=== PATIENT | male | born 1945 | race Two or more races ===

== ENCOUNTER → 2017-05-02 | Day surgery (SDC) | payer MEDICARE ==
[~2017-05-02] MED LIST: ATORVASTATIN CA20 MG PO; BUPIVACAINE HCL 0.5% INJ 30 ML VIAL INJ ONE; CEFAZOLIN SOD 1 GM VIAL ONE; DEXAMETHASONE SOD PHOS INJ 4 MG/ML VIAL ONE; FENTANYL CITRATE/PF 100MCG/2 ML INJ ONE; FINASTERIDE5 MG PO; GLYCOPYRROLATE INJ 1MG/ 5 ML SYR ONE; JANUMET XR 50-1 EAC1 PO; LEVEMIR100 UNIT/1 INJ; LIDOCAINE HCL 2% LOCAL INJ 5 ML SDV VIAL INJ ONE; LISINOPRIL10 MG PO; MIDAZOLAM HCL 2 MG/2 ML VIAL ONE; NEOSTIGMINE 5 MG/5ML SYR ONE; ONDANSETRON HCL INJ 2 MG/ML VIAL ONE; PROPOFOL IV EMULSION 10 MG/ML 20 ML VIAL ONE; ROCURONIUM BROMIDE 10 MG/ML 5ML VIAL ONE; SEVOFLURANE INHAL SOLN 250 ML PEN BTL ONE; TAMSULOSIN HCL0.4 MG PO
--- NOTE | 2017-05-02 08:35 | Operative Report ---
DATE OF PROCEDURE: May 02, 2017 PREOPERATIVE DIAGNOSES: Chronic cholecystitis, cholelithiasis. POSTOPERATIVE DIAGNOSES: Chronic cholecystitis, cholelithiasis. PROCEDURES 1. Diagnostic laparoscopy. 2. Laparoscopic cholecystectomy. BOWL TOPPER: None. ANESTHESIA: General endotracheal. INDICATIONS AND FINDINGS: Patient is a 72-year-old male who presented with complaints of epigastric abdominal pain. Workup revealed gallstones. At surgery, the patient was found to have gallbladder that was mildly distended. Cystic duct was about 2 mm in diameter, common bile duct was about 5 mm in diameter. Liver, stomach, and lower abdomen all appeared normal. TECHNIQUE: After adequate general endotracheal anesthesia with the patient in supine position, the abdomen was prepped and draped in sterile fashion with [place] solution. Skin in the umbilicus was infiltrated with 0.5% Marcaine. An incision was made at the umbilicus. Abdominal wall was elevated, and Veress needle was introduced. Pneumoperitoneum was then created. A 10-mm trocar and cannula were then passed through the umbilical wound. Laparoscopic camera was introduced. Initial laparoscopy revealed liver, stomach, and lower abdomen all appeared normal. A 10-mm trocar and cannula were placed in the epigastrium and two 5-mm trocars and cannulas placed in right upper quadrant. These were placed under direct vision. Fundus of the gallbladder was grasped and retracted superiorly. Neck of the gallbladder was grasped and retracted laterally. Peritoneum over the neck of the gallbladder was incised. The gallbladder cystic duct junction was dissected free. Cystic artery was also dissected free. The neck of the gallbladder completely dissected free. Cystic artery was divided between Hemoclips close to the gallbladder. Cystic duct was also divided between Hemoclips with 3 clips being left on the common bile duct side. The gallbladder was dissected free from the liver using scissors and electrocautery. Once it was entirely freed, it was placed into an Endopouch and brought out through the epigastric cannula. There were no stones definitely palpable. Gallbladder bed was inspected for hemostasis, which was seen to be adequate. It was irrigated with saline. All fluid aspirated, inspected for hemostasis, which was seen to be adequate. Instruments and cannulas were then removed. Pneumoperitoneum was evacuated. Wounds were then closed. Fascia in the umbilical and epigastric wound closed with #0 Vicryl. Skin to all wounds closed with 4-0 Vicryl in subcuticular fashion. Dermabond and sterile dressing were applied to each wound. The patient tolerated the procedure well. Estimated blood loss was 10 mL. There were no complications. All counts were correct. The patient was taken to the recovery room in satisfactory condition. Job#: [id number] cc:KATLYN STOVER MD
== END | disposition home or self-care (01) ==
LOC: OR 05:14
PROVIDERS: ATTEND Surgery
DX: K80.10 Calculus of gallbladder with chronic cholecystitis without obstruction (principal); N39.0 Urinary tract infection, site not specified; I10 Essential (primary) hypertension; E78.5 Hyperlipidemia, unspecified; E23.2 Diabetes insipidus; F17.210 Nicotine dependence, cigarettes, uncomplicated; Z79.4 Long term (current) use of insulin
CPT/HCPCS: 36415; 47562; 82948; 88304; 93005; J0690; J1100; J2001; J2250; J2405

== ENCOUNTER 2018-03-16 22:25 | Observation (INO) | payer MEDICARE ==
[~2018-03-16] VITALS: Ht 162.6 cm; Wt 63.0 kg
[~2018-03-16 22:25] MED LIST changes: -BUPIVACAINE HCL 0.5% INJ 30 ML VIAL INJ ONE; -CEFAZOLIN SOD 1 GM VIAL ONE; -DEXAMETHASONE SOD PHOS INJ 4 MG/ML VIAL ONE; -FENTANYL CITRATE/PF 100MCG/2 ML INJ ONE; -GLYCOPYRROLATE INJ 1MG/ 5 ML SYR ONE; -LIDOCAINE HCL 2% LOCAL INJ 5 ML SDV VIAL INJ ONE; -MIDAZOLAM HCL 2 MG/2 ML VIAL ONE; -NEOSTIGMINE 5 MG/5ML SYR ONE; -ONDANSETRON HCL INJ 2 MG/ML VIAL ONE; -PROPOFOL IV EMULSION 10 MG/ML 20 ML VIAL ONE; -ROCURONIUM BROMIDE 10 MG/ML 5ML VIAL ONE; -SEVOFLURANE INHAL SOLN 250 ML PEN BTL ONE
--- OUTSIDE RECORDS SUMMARY | 2018-03-16 22:28 | XMS REPORT | Clinical Summary ---
Author Author [facility] Organization [employer] [facility] Address Unknown Phone Unavailable Care Team Providers Care Hunter Guide Name Role Phone Laverne Emanuel MD PCP Allergies No Known Allergies Medications End Date Status Medication Sig Dispensed Refills Start Date Active finasteride (PROSCAR) 5 Take 5 mg by 0 mg tablet mouth daily. Active atorvastatin (LIPITOR) 40 TK 1 T PO HS 3 MG tablet 7 Active lisinopril TK 2 T PO IN 3 (PRINIVIL,ZESTRIL) 10 mg THE MORNING 7 tablet AND 1 T PO IN THE EVENING Active tamsulosin (FLOMAX) 0.4 TK 1 C PO QD 2 mg capsule,extended 7 release 24hr Active insulin detemir (LEVEMIR) Inject under 0 100 unit/mL injection the skin nightly. Active sitaGLIPtin-metformin Take by 0 (JANUMET XR) 50-1,000 mg mouth. tablet, ER multiphase 24 hr 04/10/2017 Discontinued lisinopril Take 5 mg by 0 (PRINIVIL,ZESTRIL) 5 mg mouth 3 tablet (three) times a day. 04/10/2017 Discontinued sitaGLIPtin (JANUVIA) 100 Take 100 mg 0 MG tablet by mouth daily. 04/10/2017 Discontinued benzonatate (TESSALON) Take 1 21 capsule 0 100 MG capsule capsule (100 8 mg total) by mouth 3 (three) times a day as needed for cough for up to 7 days. 04/15/2017 traMADol (ULTRAM) 50 mg Take 1 tablet 15 tablet 0 tablet (50 mg total) 8 by mouth every 6 (six) hours as needed for moderate pain for up to 5 days. 05/10/2017 ondansetron (ZOFRAN) 4 MG Take 1 tablet 120 tablet 0 tablet (4 mg total) 8 by mouth every 6 (six) hours for 30 days. Active Problems Problem Noted Date SBO (small bowel obstruction) 04/05/2017 Diabetes mellitus 04/05/2017 Hyperlipemia 04/05/2017 Hypertension 04/05/2017 Abdominal pain 04/04/2017 Encounters Care Team Description Date Type Specialty Beka Ruvalcaba MD Calculus of gallbladder without cholecystitis without obstruction (Primary Dx) 04/10/2017 Emergency Emergency Medicine Tran Motley RN 04/06/2017 Patient Quality Outreach Eleazar Valentin MD TefarhadimGeraldo hermosillo DO Abdominal pain, unspecified abdominal location (Primary Dx); Small bowel obstruction 04/04/2017 [facility] General Surgery - Encounter 04/06/2017 after 03/15/2017 Social History Date Tobacco Use Types Packs/Day Years Used Never Smoker Smokeless Tobacco: Never Used Sex Assigned at Date Recorded Not on file Industry Job Start Date Occupation Not on file Not on file Not on file Travel End Travel History Travel Start No recent travel history available. Last Filed Vital Signs Time Taken Vital Sign Reading 04/10/2017 9:19 AM WEB SEARCH EVALUATOR Blood Pressure 179/73 04/10/2017 9:19 AM WEB SEARCH EVALUATOR Pulse 79 04/10/2017 6:11 AM WEB SEARCH EVALUATOR Temperature 36.8 C (98.2 F) 04/10/2017 9:19 AM WEB SEARCH EVALUATOR Respiratory Rate 16 04/10/2017 9:19 AM WEB SEARCH EVALUATOR Oxygen Saturation 97% - Inhaled Oxygen - Concentration 04/10/2017 6:11 AM WEB SEARCH EVALUATOR Weight 61.2 kg (135 lb) 04/10/2017 6:11 AM WEB SEARCH EVALUATOR Height 162.6 cm (5' 4") 04/10/2017 6:11 AM WEB SEARCH EVALUATOR Body Mass Index 23.17 Plan of Treatment Health Maintenance Due Date Last Done Comments DIABETIC RETINAL EYE EXAM 1943 DIABETIC FOOT EXAM 1953 URINE MICROALBUMIN 1953 COLON CANCER SCREENING 1993 SHINGLES VACCINES (1 of 1993 2) PNEUMOCOCCAL 02/18/2008 POLYSACCHARIDE VACCINE AGE 65 AND OVER PNEUMOCOCCAL-13 02/18/2008 INFLUENZA VACCINE 10/31/2017 Procedures Comments Procedure Name Priority Date/Time Associated Diagnosis ECG ED PRELIMINARY Routine 04/11/2017 INTERPRETATION 10:24 AM WEB SEARCH EVALUATOR CT ABDOMEN PELVIS W STAT 04/10/2017 CONTRAST 8:19 AM WEB SEARCH EVALUATOR ECG 12-LEAD STAT 04/10/2017 7:39 AM WEB SEARCH EVALUATOR ZZESTIMATED GFR STAT 04/10/2017 6:35 AM WEB SEARCH EVALUATOR TROPONIN STAT 04/10/2017 6:35 AM WEB SEARCH EVALUATOR LIPASE LEVEL STAT 04/10/2017 6:35 AM WEB SEARCH EVALUATOR COMPREHENSIVE METABOLIC STAT 04/10/2017 PANEL 6:35 AM WEB SEARCH EVALUATOR LACTIC ACID LEVEL STAT 04/10/2017 6:35 AM WEB SEARCH EVALUATOR HC COMPLETE BLD COUNT STAT 04/10/2017 W/AUTO DIFF 6:35 AM WEB SEARCH EVALUATOR POC GLUCOSE Routine 04/06/2017 11:14 AM WEB SEARCH EVALUATOR LIPASE LEVEL Routine 04/06/2017 7:38 AM WEB SEARCH EVALUATOR ZZESTIMATED GFR Routine 04/06/2017 7:38 AM WEB SEARCH EVALUATOR HC COMPLETE BLD COUNT STAT 04/06/2017 W/AUTO DIFF 7:38 AM WEB SEARCH EVALUATOR BASIC METABOLIC PANEL Routine 04/06/2017 7:38 AM WEB SEARCH EVALUATOR POC GLUCOSE Routine 04/06/2017 5:21 AM WEB SEARCH EVALUATOR POC GLUCOSE Routine 04/05/2017 8:05 PM WEB SEARCH EVALUATOR POC GLUCOSE Routine 04/05/2017 4:45 PM WEB SEARCH EVALUATOR FL SMALL BOWEL Routine 04/05/2017 1:45 PM WEB SEARCH EVALUATOR POC GLUCOSE Routine 04/05/2017 12:30 PM WEB SEARCH EVALUATOR INFLUENZA ANTIGEN Routine 04/05/2017 12:30 PM WEB SEARCH EVALUATOR US GALLBLADDER Routine 04/05/2017 9:39 AM WEB SEARCH EVALUATOR POC GLUCOSE Routine 04/05/2017 5:40 AM WEB SEARCH EVALUATOR MANUAL DIFFERENTIAL Routine 04/05/2017 5:27 AM WEB SEARCH EVALUATOR ZZESTIMATED GFR Routine 04/05/2017 5:27 AM WEB SEARCH EVALUATOR LIPASE LEVEL Routine 04/05/2017 5:27 AM WEB SEARCH EVALUATOR BASIC METABOLIC PANEL Routine 04/05/2017 5:27 AM WEB SEARCH EVALUATOR CBC WITH PLATELET AND Routine 04/05/2017 DIFFERENTIAL 5:27 AM WEB SEARCH EVALUATOR POC GLUCOSE Routine 04/05/2017 1:01 AM WEB SEARCH EVALUATOR POC GLUCOSE Routine 04/05/2017 12:15 AM WEB SEARCH EVALUATOR POC GLUCOSE Routine 04/04/2017 8:31 PM WEB SEARCH EVALUATOR HEPATITIS ACUTE PANEL Routine 04/04/2017 6:45 PM WEB SEARCH EVALUATOR PROTHROMBIN TIME WITH INR Routine 04/04/2017 6:45 PM WEB SEARCH EVALUATOR POC GLUCOSE Routine 04/04/2017 4:53 PM WEB SEARCH EVALUATOR ECG ED PRELIMINARY Routine 04/04/2017 INTERPRETATION 3:24 PM WEB SEARCH EVALUATOR POC GLUCOSE Routine 04/04/2017 11:20 AM WEB SEARCH EVALUATOR CT ABDOMEN PELVIS W STAT 04/04/2017 CONTRAST 7:50 AM WEB SEARCH EVALUATOR XR CHEST 2 VW STAT 04/04/2017 6:49 AM WEB SEARCH EVALUATOR LIPID PANEL Routine 04/04/2017 6:40 AM WEB SEARCH EVALUATOR HEMOGLOBIN A1C Routine 04/04/2017 6:40 AM WEB SEARCH EVALUATOR TROPONIN Timed 04/04/2017 6:40 AM WEB SEARCH EVALUATOR LACTIC ACID LEVEL Timed 04/04/2017 6:40 AM WEB SEARCH EVALUATOR PHOSPHORUS LEVEL STAT 04/04/2017 6:40 AM WEB SEARCH EVALUATOR TROPONIN STAT 04/04/2017 6:40 AM WEB SEARCH EVALUATOR MAGNESIUM LEVEL STAT 04/04/2017 6:40 AM WEB SEARCH EVALUATOR ZZESTIMATED GFR STAT 04/04/2017 6:40 AM WEB SEARCH EVALUATOR LACTIC ACID LEVEL STAT 04/04/2017 6:40 AM WEB SEARCH EVALUATOR LIPASE LEVEL STAT 04/04/2017 6:40 AM WEB SEARCH EVALUATOR HC COMPLETE BLD COUNT STAT 04/04/2017 W/AUTO DIFF 6:40 AM WEB SEARCH EVALUATOR COMPREHENSIVE METABOLIC STAT 04/04/2017 PANEL 6:40 AM WEB SEARCH EVALUATOR URINALYSIS SCREEN AND Routine 04/04/2017 MICROSCOPY, WITH REFLEX 6:40 AM WEB SEARCH EVALUATOR TO CULTURE URINE CULTURE Routine 04/04/2017 6:40 AM WEB SEARCH EVALUATOR ECG 12-LEAD STAT 04/04/2017 6:02 AM WEB SEARCH EVALUATOR after 03/15/2017 Results * ECG ED Preliminary Interpretation - NOT AN ORDER (04/11/2017 10:24 AM WEB SEARCH EVALUATOR) Only the most recent of 2 results within the time period is included. Narrative Performed At Beka Ruvalcaba MD 04/11/2017 10:24 AM ECG ED Preliminary Interpretation - Not an Order Performed by: BEKA RUVALCABA Authorized by: BEKA RUVALCABA ECG reviewed by ED Physician in the absence of a sales and catering coordinator: yes Interpretation: Interpretation: normal Rate: ECG rate:59 ECG rate assessment: normal Rhythm: Rhythm: sinus rhythm Ectopy: Ectopy: none QRS: QRS axis:Normal Conduction: Conduction: normal ST segments: ST segments:Normal T waves: T waves: normal * CT Abdomen Pelvis W Contrast (04/10/2017 8:19 AM WEB SEARCH EVALUATOR) Only the most recent of 2 results within the time period is included. Narrative Performed At EXAMINATION:CT ABDOMEN PELVIS W CONTRAST [facility] CLINICAL HISTORY:ruq abd pain with hx of sbo and gallstones dc from hospital 3 days ago TECHNIQUE: Multiple axial images of the abdomen and pelvis were obtained following intravenous administration of iodinated contrast. Sagittal and coronal computerized reformatted images were also obtained. Scan was performed using radiation dose reduction techniques. COMPARISON:April 04, 2017 FINDINGS: Gallbladder contains a small stone but is otherwise grossly unremarkable. There is no biliary dilatation. No suspicious lesions in the solid organs. No nephrolithiasis or hydronephrosis. Prostate is enlarged. Bladder is mildly distended. No significant bowel dilatation or thickening. No signs of obstruction. Appendix is normal. Numerous mildly enlarged retroperitoneal lymph nodes nodes are again demonstrated. Diffuse marked vascular calcifications. No aortic aneurysm. Celiac axis and mesenteric arteries are adequately patent. IMPRESSION: No definite evidence of acute process. Small gallstone. Mild retroperitoneal lymphadenopathy of uncertain significance. CT follow-up in 6 months should be considered if there are no prior remote comparison exams available. [facility]-[id number] Procedure Note Interface, Radiology Results Incoming - 04/10/2017 8:31 AM WEB SEARCH EVALUATOR EXAMINATION: CT ABDOMEN PELVIS W CONTRAST CLINICAL HISTORY: ruq abd pain with hx of sbo and gallstones dc from hospital 3 days ago TECHNIQUE: Multiple axial images of the abdomen and pelvis were obtained following intravenous administration of iodinated contrast. Sagittal and coronal computerized reformatted images were also obtained. Scan was performed using radiation dose reduction techniques. COMPARISON: April 04, 2017 FINDINGS: Gallbladder contains a small stone but is otherwise grossly unremarkable. There is no biliary dilatation. No suspicious lesions in the solid organs. No nephrolithiasis or hydronephrosis. Prostate is enlarged. Bladder is mildly distended. No significant bowel dilatation or thickening. No signs of obstruction. Appendix is normal. Numerous mildly enlarged retroperitoneal lymph nodes nodes are again demonstrated. Diffuse marked vascular calcifications. No aortic aneurysm. Celiac axis and mesenteric arteries are adequately patent. IMPRESSION: No definite evidence of acute process. Small gallstone. Mild retroperitoneal lymphadenopathy of uncertain significance. CT follow-up in 6 months should be considered if there are no prior remote comparison exams available. [facility]-[id number] Performing Organization Address City/State/Zipcode Phone Number [facility] [address] [place] [address] * ECG 12 lead (04/10/2017 7:39 AM WEB SEARCH EVALUATOR) Only the most recent of 2 results within the time period is included. Ventricular rate 59 [facility] Atrial rate 59 [facility] FL interval 94 [facility] QRSD interval 92 [facility] QT interval 420 [facility] QTC interval 415 [facility] P axis 1 60 [facility] QRS axis 1 2 [facility] T wave axis 59 [facility] MUSE EKG impression Sinus bradycardia with short [facility] MUSE FL-Otherwise normal ECG-In automated comparison with ECG of 10-APR-2017 07:37,-No significant change was found- Performing Organization Address City/[facility] Phone Number [facility] MUSE [address] [place] [address] * Estimated GFR (04/10/2017 6:35 AM WEB SEARCH EVALUATOR) Only the most recent of 4 results within the time period is included. GFR Non Af Amer >90 mL/min/1.73 m2 [facility] DEPARTMENT OF PATHOLOGY AND [employer] MEDICINE GFR Af Amer >90 mL/min/1.73 m2 [facility] DEPARTMENT OF Comment: PATHOLOGY AND Chronic kidney disease: <60 GENOMIC MEDICINE mL/min/1.73m2 Kidney failure: <15 mL/min/1.73m2 The estimated GFR is calculated from the IDMS-traceable Modification of Diet in Renal Disease Equation. The accuracy of the calculation is poor when the creatinine is normal. Calculated values >90 mL/min/1.73m2 are not reported. This equation has not been validated in children (<18 years), women, the elderly (>70 years), or ethnic groups other than Caucasians and Americans. Specimen Plasma specimen Performing Organization Address [facility] Phone Number [address] [place] [address] PATHOLOGY AND [employer] MEDICINE * Troponin (04/10/2017 6:35 AM WEB SEARCH EVALUATOR) Only the most recent of 3 results within the time period is included. Troponin <0.300 0.000 - 0.300 ng/mL [facility] DEPARTMENT OF Comment: PATHOLOGY AND 0.30 - 1.49 GENOMIC MEDICINE ng/mlMay indicate increased risk of acute coronary syndrome. >=1.5 ng/ml Consistent with acute myocardial infarction. The diagnostic value of a single normal or non-diagnostic result is questionable.Serial samples at 2-6 hour intervals are required to rule out acute myocardial injury. Specimen Plasma specimen Performing Organization Address [facility] Phone Number [address] [place] [address] PATHOLOGY AND [facility] * CBC with platelet and differential (04/10/2017 6:35 AM WEB SEARCH EVALUATOR) Only the most recent of 4 results within the time period is included. WBC 9.32 4.50 - 11.00 k/uL [facility] DEPARTMENT OF PATHOLOGY AND GENOMIC MEDICINE RBC 4.57 4.40 - 6.00 m/uL [facility] DEPARTMENT OF PATHOLOGY AND GENOMIC MEDICINE HGB 14.1 14.0 - 18.0 g/dL [facility] DEPARTMENT OF PATHOLOGY AND GENOMIC MEDICINE HCT 41.4 41.0 - 51.0 % [facility] DEPARTMENT OF PATHOLOGY AND GENOMIC MEDICINE MCV 90.6 82.0 - 100.0 fL [facility] DEPARTMENT OF PATHOLOGY AND GENOMIC MEDICINE MCH 30.9 27.0 - 34.0 pg [facility] DEPARTMENT OF PATHOLOGY AND GENOMIC MEDICINE MCHC 34.1 31.0 - 37.0 g/dL [facility] DEPARTMENT OF PATHOLOGY AND GENOMIC MEDICINE RDW - SD 42.0 37.0 - 55.0 fL [facility] DEPARTMENT OF PATHOLOGY AND GENOMIC MEDICINE MPV 12.8 8.8 - 13.2 fL [facility] DEPARTMENT OF PATHOLOGY AND GENOMIC MEDICINE Platelet count 151 150 - 400 k/uL [facility] DEPARTMENT OF PATHOLOGY AND GENOMIC MEDICINE Nucleated RBC 0.00 /100 WBC [facility] DEPARTMENT OF PATHOLOGY AND GENOMIC MEDICINE Neutrophils 65.8 39.0 - 69.0 % [facility] DEPARTMENT OF PATHOLOGY AND GENOMIC MEDICINE Lymphocytes 25.4 25.0 - 45.0 % [facility] DEPARTMENT OF PATHOLOGY AND GENOMIC MEDICINE Monocytes 6.2 0.0 - 10.0 % [facility] DEPARTMENT OF PATHOLOGY AND GENOMIC MEDICINE Eosinophils 1.7 0.0 - 5.0 % [facility] DEPARTMENT OF PATHOLOGY AND GENOMIC MEDICINE Basophils 0.5 0.0 - 1.0 % [facility] DEPARTMENT OF PATHOLOGY AND GENOMIC MEDICINE Immature granulocytes 0.4Comment: "Immature 0.0 - 1.0 % [facility] DEPARTMENT OF granulocytes" (promyelocytes, PATHOLOGY AND myelocytes, metamyelocytes) [facility] Specimen Blood Performing Organization Address City/State/Zipcode Phone Number [facility] [place] [address] [place] [id number] PATHOLOGY AND [facility] * Lipase level (04/10/2017 6:35 AM WEB SEARCH EVALUATOR) Only the most recent of 4 results within the time period is included. Lipase 46 13 - 60 U/L [facility] DEPARTMENT OF PATHOLOGY AND GENOMIC MEDICINE Specimen Plasma specimen Performing Organization Address City/[facility]/Zipcode Phone Number [facility] [place] [place] [address] [place] [address] PATHOLOGY AND [facility] MEDICINE * Lactic acid level (04/10/2017 6:35 AM WEB SEARCH EVALUATOR) Only the most recent of 3 results within the time period is included. Lactic acid 1.1 0.5 - 2.2 mmol/L [facility] DEPARTMENT OF PATHOLOGY AND [employer] MEDICINE Specimen Plasma specimen Performing Organization Address City/[facility]/Zipcode Phone Number [facility] [place] [address] [place] [address] PATHOLOGY [facility] * Comprehensive metabolic panel (04/10/2017 6:35 AM WEB SEARCH EVALUATOR) Only the most recent of 2 results within the time period is included. Sodium 139 135 - 148 mEq/L [facility] DEPARTMENT OF PATHOLOGY AND GENOMIC MEDICINE Potassium 5.4 (H) 3.5 - 5.0 mEq/L [facility] DEPARTMENT OF PATHOLOGY AND GENOMIC MEDICINE Chloride 100 98 - 112 mEq/L [facility] DEPARTMENT OF PATHOLOGY AND GENOMIC MEDICINE CO2 27 24 - 31 mEq/L [facility] DEPARTMENT OF PATHOLOGY AND GENOMIC MEDICINE Anion gap 12 7 - 15 mEq/L [facility] DEPARTMENT OF Comment: PATHOLOGY AND Starting from July [facility] , anion gap calculation no longer incorporates potassium. Please note the change. BUN 14 8 - 23 mg/dL [facility] DEPARTMENT OF PATHOLOGY AND GENOMIC MEDICINE Creatinine 0.7 0.7 - 1.2 mg/dL [facility] DEPARTMENT OF PATHOLOGY AND GENOMIC MEDICINE Glucose 168 (H) 65 - 99 mg/dL [facility] DEPARTMENT OF PATHOLOGY AND GENOMIC MEDICINE Calcium 9.5 8.8 - 10.2 mg/dL [facility] DEPARTMENT OF PATHOLOGY AND GENOMIC MEDICINE Protein 7.4 6.3 - 8.3 g/dL [facility] DEPARTMENT OF Comment: PATHOLOGY AND [place] GENOMIC MEDICINE 4.6-7.0 g/dL 1 week 4.4-7.6 g/dL 7 months-1year 5.1-7.3 g/dL 1-2 years5.6-7 .5 g/dL >3 years6.0-8 .0 g/dL 18-150 6.3-8.3 g/dL Albumin 3.8 3.5 - 5.0 g/dL [facility] DEPARTMENT OF PATHOLOGY AND GENOMIC MEDICINE A/G ratio 1.1 0.7 - 3.8 [facility] DEPARTMENT OF PATHOLOGY AND GENOMIC MEDICINE Alkaline phosphatase 93 40 - 129 U/L [facility] DEPARTMENT OF PATHOLOGY AND GENOMIC MEDICINE AST 18 10 - 50 U/L [facility] DEPARTMENT OF PATHOLOGY AND GENOMIC MEDICINE ALT 13 5 - 50 U/L [facility] DEPARTMENT OF PATHOLOGY AND GENOMIC MEDICINE Total bilirubin 0.6 0.0 - 1.2 mg/dL [facility] DEPARTMENT OF PATHOLOGY AND [employer] MEDICINE Specimen Plasma specimen Performing Organization Address [facility] Phone Number [address] [place] [address] PATHOLOGY AND [facility] * POC glucose (04/06/2017 11:14 AM WEB SEARCH EVALUATOR) Only the most recent of 11 results within the time period is included. POC glucose 263 (H) 65 - 99 mg/dL [facility] DEPARTMENT OF Comment: PATHOLOGY AND Meter ID: [id number] [facility] Blind Hooker: Gautam Zepeda Performing Organization Address City/[facility] Phone Number [address] * Basic metabolic panel (04/06/2017 7:38 AM WEB SEARCH EVALUATOR) Only the most recent of 2 results within the time period is included. Sodium 138 135 - 148 mEq/L [facility] DEPARTMENT OF PATHOLOGY AND [employer] MEDICINE Potassium 4.3 3.5 - 5.0 mEq/L [facility] DEPARTMENT OF PATHOLOGY AND [employer] MEDICINE Chloride 101 98 - 112 mEq/L [facility] DEPARTMENT OF PATHOLOGY AND [employer] MEDICINE CO2 27 24 - 31 mEq/L [facility] DEPARTMENT OF PATHOLOGY AND [employer] MEDICINE Anion gap 10 7 - 15 mEq/L [facility] DEPARTMENT OF Comment: PATHOLOGY AND Starting from July [facility] , anion gap calculation no longer incorporates potassium. Please note the change. BUN 8 8 - 23 mg/dL [facility] DEPARTMENT OF PATHOLOGY AND [employer] MEDICINE Creatinine 0.7 0.7 - 1.2 mg/dL [facility] DEPARTMENT OF PATHOLOGY AND GENOMIC MEDICINE Glucose 211 (H) 65 - 99 mg/dL [facility] DEPARTMENT OF PATHOLOGY AND GENOMIC MEDICINE Calcium 8.9 8.8 - 10.2 mg/dL [facility] DEPARTMENT OF PATHOLOGY AND GENOMIC MEDICINE Specimen Plasma specimen Performing Organization Address [facility]/Zipcode Phone Number [facility] [place] [id number] [place] [address] [place] [address] PATHOLOGY AND GENOMIC MEDICINE * FL Small Bowel Series (04/05/2017 1:45 PM WEB SEARCH EVALUATOR) Narrative Performed At EXAMINATION:[place] [facility]:sb dilation COMPARISON:None. TECHNIQUE: SMALL BOWEL SERIES was performed with barium. FINDINGS: Small bowel caliber and fold thickness are within normal limits. Transit time is borderline with contrast reaching the colon between 2.5 and 4 hours. No definite prolongation of transit time is present. There is no evidence of hypersecretion. No abnormally dilated segments or mass lesions are identified. The terminal ileum appears normal. There is stool in the right colon. IMPRESSION: No significant finding is visualized. Mucosal architecture is preserved. No significant findings are identified. [id number] Procedure Note Interface, Radiology Results Incoming - 04/05/2017 2:42 PM WEB SEARCH EVALUATOR EXAMINATION: FL SMALL BOWEL CLINICAL HISTORY: sb dilation COMPARISON: None. TECHNIQUE: SMALL BOWEL SERIES was performed with barium. FINDINGS: Small bowel caliber and fold thickness are within normal limits. Transit time is borderline with contrast reaching the colon between 2.5 and 4 hours. No definite prolongation of transit time is present. There is no evidence of hypersecretion. No abnormally dilated segments or mass lesions are identified. The terminal ileum appears normal. There is stool in the right colon. IMPRESSION: No significant finding is visualized. Mucosal architecture is preserved. No significant findings are identified. [id number] Performing Organization Address [facility] Phone Number [facility] [address] [place] [address] * Influenza antigen (04/05/2017 12:30 PM WEB SEARCH EVALUATOR) Influenza antigen Negative for Influenza A/B [facility] DEPARTMENT OF antigen. PATHOLOGY AND Comment: GENOMIC MEDICINE Specimen Information Specimen Source: Nares Specimen Site: Right Specimen Nares - Right Performing Organization Address City/[facility]/Zipcode Phone Number [facility] [place] [address] [place] [address] PATHOLOGY AND GENOMIC MEDICINE * US Gallbladder (04/05/2017 9:39 AM WEB SEARCH EVALUATOR) Narrative Performed At EXAMINATION:US GALLBLADDER [facility] CLINICAL HISTORY:Cholecystitis COMPARISON:None. FINDINGS: The visualized portion of the liver appears homogeneous with no focal abnormality. The main portal vein measures 1 cm is within the range of normal flow is toward the liver. The gallbladder contains multiple stones. Gallbladder wall is not thickened. The common duct is not dilated measuring approximately 3 mm. IMPRESSION: Gallstones [id number] Procedure Note Interface, Radiology Results Incoming - 04/05/2017 9:48 AM WEB SEARCH EVALUATOR EXAMINATION: US GALLBLADDER CLINICAL HISTORY:Cholecystitis COMPARISON: None. FINDINGS: The visualized portion of the liver appears homogeneous with no focal abnormality. The main portal vein measures 1 cm is within the range of normal flow is toward the liver. The gallbladder contains multiple stones. Gallbladder wall is not thickened. The common duct is not dilated measuring approximately 3 mm. IMPRESSION: Gallstones [id number] Performing Organization Address City/[facility]/Zipcode Phone Number [facility] [address] [place] [address] * Manual differential (04/05/2017 5:27 AM WEB SEARCH EVALUATOR) Manual differential PERFORMED [facility] DEPARTMENT OF PATHOLOGY AND GENOMIC MEDICINE Neutrophils 72.0 (H) 39.0 - 69.0 % [facility] DEPARTMENT OF PATHOLOGY AND GENOMIC MEDICINE Lymphocytes 20.0 (L) 25.0 - 45.0 % [facility] DEPARTMENT OF PATHOLOGY AND GENOMIC MEDICINE Monocytes 4.0 0.0 - 10.0 % [facility] DEPARTMENT OF PATHOLOGY AND GENOMIC MEDICINE Eosinophils 0.0 0.0 - 5.0 % [facility] DEPARTMENT OF PATHOLOGY AND GENOMIC MEDICINE Basophils 0.0 0.0 - 1.0 % [facility] DEPARTMENT OF PATHOLOGY AND GENOMIC MEDICINE Metamyelocytes 0 % [facility] DEPARTMENT OF PATHOLOGY AND GENOMIC MEDICINE Promyelocytes 0 % [facility] DEPARTMENT OF PATHOLOGY AND GENOMIC MEDICINE Reactive lymphocytes 4.0 [facility] DEPARTMENT OF PATHOLOGY AND GENOMIC MEDICINE Platelet slide review Davidson slt decr [facility] DEPARTMENT OF PATHOLOGY AND GENOMIC MEDICINE Performing Organization Address City/State/Zipcode Phone Number [address] [place] [address] [facility] GENOMIC MEDICINE * Hepatitis acute panel (04/04/2017 6:45 PM WEB SEARCH EVALUATOR) Hepatitis A IgM Nonreactive Non-reactive [facility] DEPARTMENT OF PATHOLOGY AND GENOMIC MEDICINE Hepatitis B core IgM Nonreactive Non-reactive [facility] DEPARTMENT OF PATHOLOGY AND GENOMIC MEDICINE Hepatitis B surface Ag Nonreactive Non-reactive [facility] DEPARTMENT OF PATHOLOGY AND GENOMIC MEDICINE Hepatitis C Ab Nonreactive Non-reactive [facility] DEPARTMENT OF PATHOLOGY AND GENOMIC MEDICINE Specimen Serum Performing Organization Address [facility] Phone Number [address] [place] [address] PATHOLOGY AND GENOMIC MEDICINE * Prothrombin time with INR (04/04/2017 6:45 PM WEB SEARCH EVALUATOR) Prothrombin time 14.1 12.0 - 15.0 sec [facility] DEPARTMENT OF PATHOLOGY AND GENOMIC MEDICINE INR 1.1 [facility] DEPARTMENT OF Comment: PATHOLOGY AND The International Normalized GENOMIC MEDICINE Ratio (INR) is a therapeutic monitoring tool for patients who are stable on oral anticoagulant therapy. An INR of 2.0-3.0 is suggested for deep vein thrombosis/pulmonary embolism. Specimen Blood Performing Organization Address [facility] Phone Number [address] [place] [id number] PATHOLOGY AND GENOMIC MEDICINE * XR Chest 2 Vw (04/04/2017 6:49 AM WEB SEARCH EVALUATOR) Narrative Performed At EXAMINATION: XR CHEST 2 VW [facility] INDICATION: epigastric pain COMPARISON: None IMPRESSION: Heart size is within normal limits. No focal infiltrate, effusion, or pneumothorax. Small metallic radiodensities projecting over the right thorax. Multilevel spondylosis thoracic spine. Small eventration right hemidiaphragm. [id number] Procedure Note Interface, Radiology Results Incoming - 04/04/2017 7:02 AM WEB SEARCH EVALUATOR EXAMINATION: XR CHEST 2 VW INDICATION: epigastric pain COMPARISON: None IMPRESSION: Heart size is within normal limits. No focal infiltrate, effusion, or pneumothorax. Small metallic radiodensities projecting over the right thorax. Multilevel spondylosis thoracic spine. Small eventration right hemidiaphragm. [id number] Performing Organization Address [facility]/Zipcode Phone Number [facility] [address] [place] [address] * Urinalysis screen and microscopy, with reflex to culture (04/04/2017 6:40 AM WEB SEARCH EVALUATOR) Specimen site Clean catch [facility] DEPARTMENT OF PATHOLOGY AND GENOMIC MEDICINE Color, UA Straw [facility] DEPARTMENT OF PATHOLOGY AND GENOMIC MEDICINE Appearance, UA Clear [facility] DEPARTMENT OF PATHOLOGY AND GENOMIC MEDICINE Specific gravity, UA 1.008 1.001 - 1.035 [facility] DEPARTMENT OF PATHOLOGY AND GENOMIC MEDICINE pH, UA 5.0 5.0 - 8.5 [facility] DEPARTMENT OF PATHOLOGY AND GENOMIC MEDICINE Protein, UA Negative Negative [facility] DEPARTMENT OF PATHOLOGY AND GENOMIC MEDICINE Glucose, UA 1+ (A) Negative [facility] DEPARTMENT OF PATHOLOGY AND GENOMIC MEDICINE Ketones, UA 1+ (A) Negative [facility] DEPARTMENT OF PATHOLOGY AND GENOMIC MEDICINE Bilirubin, UA Negative Negative [facility] DEPARTMENT OF PATHOLOGY AND GENOMIC MEDICINE Blood, UA Small (A) Negative [facility] DEPARTMENT OF PATHOLOGY AND GENOMIC MEDICINE Nitrite, UA Negative Negative [facility] DEPARTMENT OF PATHOLOGY AND GENOMIC MEDICINE Urobilinogen, UA Negative <2.0 [facility] DEPARTMENT OF PATHOLOGY AND GENOMIC MEDICINE Leukocyte esterase, UA Negative Negative [facility] DEPARTMENT OF PATHOLOGY AND GENOMIC MEDICINE WBC, UA 0-5 0 - 1 /HPF [facility] DEPARTMENT OF PATHOLOGY AND GENOMIC MEDICINE RBC, UA 0-5 0 - 1 /HPF [facility] DEPARTMENT OF PATHOLOGY AND GENOMIC MEDICINE Bacteria, UA None seen None seen [facility] DEPARTMENT OF PATHOLOGY AND GENOMIC MEDICINE Yeast, UA None seen [facility] DEPARTMENT OF PATHOLOGY AND GENOMIC MEDICINE Yeast with pseudohyphae, None seen [facility] DEPARTMENT OF UA PATHOLOGY AND GENOMIC MEDICINE Granular casts, UA 2-5 (H) 0 - 1 /LPF [facility] DEPARTMENT OF PATHOLOGY AND GENOMIC MEDICINE Specimen Urine Performing Organization Address [facility] Phone Number [address] [place] [address] PATHOLOGY AND [facility] MEDICINE * Urine culture (04/04/2017 6:40 AM WEB SEARCH EVALUATOR) Urine culture SEE COMMENTComment: [facility] DEPARTMENT OF Bacteriuria screen negative. PATHOLOGY AND [facility] MEDICINE Specimen Urine Performing Organization Address [facility] Phone Number [address] [place] [address] PATHOLOGY [facility] * Phosphorus level (04/04/2017 6:40 AM WEB SEARCH EVALUATOR) Phosphorus 2.9 2.4 - 4.5 mg/dL [facility] DEPARTMENT OF PATHOLOGY AND GENOMIC MEDICINE Specimen Plasma specimen Performing Organization Address [facility] Phone Number [address] [place] [address] PATHOLOGY [facility] * Magnesium level (04/04/2017 6:40 AM WEB SEARCH EVALUATOR) Magnesium 1.9 1.6 - 2.4 mg/dL [facility] DEPARTMENT OF PATHOLOGY AND GENOMIC MEDICINE Specimen Plasma specimen Performing Organization Address [facility] Phone Number [facility] [id number] [place] [address] [place] [address] PATHOLOGY AND [employer] MEDICINE * Hemoglobin A1c (04/04/2017 6:40 AM WEB SEARCH EVALUATOR) Hemoglobin A1C 6.4 (H) 4.0 - 6.0 % [facility] DEPARTMENT OF Comment: PATHOLOGY AND GENOMIC MEDICINE Less than 6% - Goal of therapy for Type II Diabetes Less than 7%-Goal of therapy for Type I Diabetes Less than 8%-Accepta ble control for Type I or Type II Diabetes Greater than 8%-Unacceptabl e control; action indicated. ([id number]) Specimen Blood Performing Organization Address [facility] Phone Number [address] [place] [address] PATHOLOGY AND [facility] MEDICINE * Lipid panel (04/04/2017 6:40 AM WEB SEARCH EVALUATOR) Cholesterol 121 <200 mg/dL [facility] DEPARTMENT OF PATHOLOGY AND GENOMIC MEDICINE Triglycerides 82 <150 mg/dL [facility] DEPARTMENT OF PATHOLOGY AND GENOMIC MEDICINE HDL cholesterol 54 >40 mg/dL [facility] DEPARTMENT OF PATHOLOGY AND GENOMIC MEDICINE LDL cholesterol 56Comment: Result obtained by <100 mg/dL [facility] DEPARTMENT OF direct LDL measurement PATHOLOGY AND [employer] MEDICINE Lipid panel SeeBelow [facility] DEPARTMENT OF interpretation Comment: PATHOLOGY AND Total Cholesterol GENOMIC MEDICINE (mg/dL) <200 Desirable 200-239Borderline -high >=240High Triglycerides (mg/dL) <150 Normal 150-199Borderline -high 200-499High >=500Very high HDL Cholesterol (mg/dL) <40Low (male) <40Low (female) LDL Cholesterol (mg/dL) <100 Optimal 100-129Near or above optimal 130-159Borderline -high 160-189High >=190Very high Risk Catergories that modify LDL goals. Risk Catergories LDL goal (mg/dL) CHD and CHD risk equivalent<100 (10-year risk >20%) Multiple (2+) risk factors <130 (10-year risk=<20%) 0-1 risk factors <160 (<10-year risk) Defining levels of lipids in metabolic syndrome Triglycerides >=150 mg/dL HDL Cholesterol Men <40 mg/dL Women <40 mg/dL Non-HDL cholesterol is a second target for therapy in persons with high triglycerides (>=200 mg/dL) Specimen Plasma specimen Performing Organization Address City/State/Zipcode Phone Number [facility] [place] [phone] [place] [address] PATHOLOGY AND GENOMIC MEDICINE after 03/15/2017 Insurance Payer Benefit Subscriber ID Type Phone Address Plan / Group [employer] xxxxxxxx HMO [employer] HMO MCR ADV Advance Directives Patient has advance care planning documents, and code status on file. For more i nformation, please contact: Chalino Valdez [address] [place] [address] Date Inactivated Comments Code Status Date Activated 04/06/2017 5:42 PM Full Code 04/04/2017 11:24 AM Code Status decision reached by: Patient
[2018-03-16] MEDS ORDERED: PANTOPRAZOLE 40 MG 10ML VIAL IV STA (22:31)
[2018-03-16 22:43] LABS: BASOPHILS % 0.4 % (0.0-1.0); EOSINOPHILS # (AUTO) 0.1 (0.0-0.4); EOSINOPHILS % 0.6 % (0.0-6.0); HEMATOCRIT 40.8 % (38.2-49.6); HEMOGLOBIN 13.8 g/dL (14.0-18.0); LYMPHOCYTES # (AUTO) 1.7 (1.0-3.2); MEAN CORPUSCULAR HEMOGLOBIN 31.9 pg (28-32); MEAN CORPUSCULAR HGB CONC 33.8 g/dL (31-35); MEAN CORPUSCULAR VOLUME 94.4 fL (81-99); MONOCYTES # (AUTO) 0.6 (0.2-0.8); NEUTROPHILS # (AUTO) 5.4 (2.1-6.9); NEUTROPHILS % 68.6 % (38.7-80.0); PLATELET COUNT 101 x10e3/uL (140-360); RED BLOOD COUNT 4.32 x10e6/uL (4.3-5.7); RED CELL DISTRIBUTION WIDTH 12.5 % (11.7-14.4)
[2018-03-16 23:04] LABS: ALANINE AMINOTRANSFERASE 11 IU/L (0-55); ALBUMIN 3.5 g/dL (3.5-5.0); ALKALINE PHOSPHATASE 79 IU/L (40-150); AMYLASE 289 U/L (25-125); ANION GAP 13.9 mmol/L (8-16); BLOOD UREA NITROGEN 10 mg/dL (7-26); BUN/CREATININE RATIO 13 (6-25); CARBON DIOXIDE 23 mmol/L (22-29); CHLORIDE 104 mmol/L (98-107); CREATINE KINASE 28 IU/L (30-200); CREATININE, SERUM 0.79 mg/dL (0.72-1.25); EST GLOMERULAR FILTRATION RATE > 60 ML/MIN (60-); GLUCOSE 210 mg/dL (74-118); LIPASE 636 U/L (8-78); POTASSIUM 3.9 mmol/L (3.5-5.1); SODIUM 137 mmol/L (136-145)
[2018-03-16 23:06] LABS: BILIRUBIN,URINE NEGATIVE (NEGATIVE); CLARITY,URINE CLEAR (CLEAR); COLOR,URINE YELLOW (YELLOW); KETONES,URINE NEGATIVE (NEGATIVE); LEUKOCYTE ESTERASE ,URINE NEGATIVE (NEGATIVE); NITRITE,URINE NEGATIVE (NEGATIVE); PROTEIN,URINE DIPSTICK 1+ (NEGATIVE); URINE UROBILINOGEN 0.2 mg/dL (0.2 - 1)
[2018-03-16 23:07] LABS: EPITHELIAL CELLS,URINE FEW /LPF; WBC,URINE (MAN) 0-5 /HPF (0-5)
[2018-03-16] MEDS ORDERED: SODIUM CHLORIDE 0.9% 1000ML 2,000 ML ONE (23:35)
[2018-03-16] MEDS ORDERED: SODIUM CHLORIDE 0.9% 1000ML 1,000 ML IV ONE (23:45)
--- NOTE | 2018-03-17 00:23 | Diagnostic Imaging Report ---
EXAMINATION: ABDOMEN ACUTE SERIES W/PA CXR INDICATION: Abdominal pain and cough. COMPARISON: None FINDINGS: TUBES and LINES: None. LUNGS: Lungs are well inflated. Lungs are clear. There is no evidence of pneumonia or pulmonary edema. PLEURA: No pleural effusion or pneumothorax. HEART AND MEDIASTINUM: The cardiomediastinal silhouette is unremarkable. BONES AND SOFT TISSUES: No acute osseous lesion. Soft tissues are unremarkable. ABDOMEN: No free air under the diaphragm. Large stool burden. Nonobstructive bowel gas pattern. No suspicious air-fluid levels on upright view. IMPRESSION: No acute thoracic abnormality. Large stool burden. Nonobstructive bowel gas pattern. Signed by: DR. Jaden Herron MD on 03/17/2018 12:19 AM
[2018-03-17] MEDS: SODIUM CHLORIDE 0.9% 1000ML 1,000 ML IV SCH ×5 (00:34→23:23)
[2018-03-17] MEDS ORDERED: DEXTROSE 50% SYRINGE 50 ML IV PRN (00:45)
--- OUTSIDE RECORDS SUMMARY | 2018-03-17 01:09 | XMS REPORT | Clinical Summary ---
Author Author [employer]red [facility]ats[facility] Organization [employer] Address Unknown Phone Unavailable Care Team Providers Care Block Placer Name Role Phone Laverne Emanuel MD PCP [...] location (Primary Dx); Small bowel obstruction 04/04/2017 [facility] General Surgery - Encounter 04/06/2017 after 03/16/2017 Social History Date Tobacco Use Types Packs/Day Years Used Never Smoker Smokeless Tobacco: Never Used Sex Assigned at Date Recorded Not on file Industry Job Start Date Occupation Not on file Not on file Not on file Travel End Travel History Travel Start No recent travel history available. Last Filed Vital Signs Time Taken Vital Sign Reading 04/10/2017 9:19 AM [employer] Blood Pressure 179/73 04/10/2017 9:19 AM [employer] Pulse 79 04/10/2017 6:11 AM [employer]ODUCTION [employer] WORK[employer] Temperature 36.8 C (98.2 F) 04/10/2017 9:19 AM [employer]ODUCTION [employer] Respiratory Rate 16 04/10/2017 9:19 AM [employer]ODUCTION LINE WORK[employer] Oxygen Saturation 97% - Inhaled Oxygen - Concentration 04/10/2017 6:11 AM [employer]ODUCTION LINE WORKER Weight 61.2 kg (135 lb) 04/10/2017 6:11 AM [employer]ODUCTION [employer] Height 162.6 cm (5' 4") 04/10/2017 6:11 AM [employer]ODUCTION LINE WORK[employer] Body Mass Index 23.17 Plan of Treatment [...] ED PRELIMINARY Routine 04/11/2017 INTERPRETATION 10:24 [address] [employer] [address] ABDOMEN PELVIS W STAT 04/10/2017 CONTRAST 8:19 AM [employer]ODUCTION LINE WORKER ECG 12-LEAD STAT 04/10/2017 7:39 AM PRODUCTION LINE WORKER ZZESTIMATED GFR STAT 04/10/2017 6:35 AM PRODUCTION LINE WORKER TROPONIN STAT 04/10/2017 6:35 AM PRODUCTION LINE WORKER LIPASE LEVEL STAT 04/10/2017 6:35 AM [employer]ODUCTION LINE WORKER COMPREHENSIVE METABOLIC STAT 04/10/2017 PANEL 6:35 AM PRODUCTION LINE WORKER LACTIC ACID LEVEL STAT 04/10/2017 6:35 AM [employer]ODUCTION LINE WORKER HC COMPLETE BLD COUNT STAT 04/10/2017 W/AUTO DIFF 6:35 AM [employer]ODUCTION LINE WORKER POC GLUCOSE Routine 04/06/2017 11:14 AM [employer]ODUCTION LINE WORKER LIPASE LEVEL Routine 04/06/2017 7:38 AM PRODUCTION LINE WORKER ZZESTIMATED GFR Routine 04/06/2017 7:38 AM [employer]ODUCTION LINE WORKER HC COMPLETE BLD COUNT STAT 04/06/2017 W/AUTO DIFF 7:38 AM PRODUCTION LINE WORKER BASIC METABOLIC PANEL Routine 04/06/2017 7:38 AM [employer]ODUCTION LINE WORKER POC GLUCOSE Routine 04/06/2017 5:21 AM [employer]ODUCTION LINE WORKER POC GLUCOSE Routine 04/05/2017 8:05 PM [employer]ODUCTION LINE WORKER POC GLUCOSE Routine 04/05/2017 4:45 PM PRODUCTION LINE WORKER FL SMALL BOWEL Routine 04/05/2017 1:45 PM [employer]ODUCTION LINE WORKER POC GLUCOSE Routine 04/05/2017 12:30 PM PRODUCTION LINE WORKER INFLUENZA ANTIGEN Routine 04/05/2017 12:30 PM PRODUCTION LINE WORKER US GALLBLADDER Routine 04/05/2017 9:39 AM PRODUCTION LINE WORKER POC GLUCOSE Routine 04/05/2017 5:40 AM PRODUCTION LINE WORKER MANUAL DIFFERENTIAL Routine 04/05/2017 5:27 AM PRODUCTION LINE WORKER ZZESTIMATED GFR Routine 04/05/2017 5:27 AM [employer]ODUCTION LINE WORKER LIPASE LEVEL Routine 04/05/2017 5:27 AM [employer]ODUCTION LINE WORKER BASIC METABOLIC PANEL Routine 04/05/2017 5:27 AM PRODUCTION LINE WORKER CBC WITH PLATELET AND Routine 04/05/2017 DIFFERENTIAL 5:27 AM PRODUCTION LINE WORKER POC GLUCOSE Routine 04/05/2017 1:01 AM [employer]ODUCTION LINE WORKER POC GLUCOSE Routine 04/05/2017 12:15 AM [employer]ODUCTION LINE WORKER POC GLUCOSE Routine 04/04/2017 8:31 PM [employer]ODUCTION LINE WORKER HEPATITIS ACUTE PANEL Routine 04/04/2017 6:45 PM PRODUCTION LINE WORKER PROTHROMBIN TIME WITH INR Routine 04/04/2017 6:45 PM [employer]ODUCTION LINE WORKER POC GLUCOSE Routine 04/04/2017 4:53 PM [employer]ODUCTION LINE WORKER ECG ED PRELIMINARY Routine 04/04/2017 INTERPRETATION 3:24 PM [employer]ODUCTION LINE WORKER POC GLUCOSE Routine 04/04/2017 11:20 [address] [employer] [address] ABDOMEN PELVIS W STAT 04/04/2017 CONTRAST 7:50 AM PRODUCTION LINE WORKER XR CHEST 2 VW STAT 04/04/2017 6:49 AM PRODUCTION LINE WORKER LIPID PANEL Routine 04/04/2017 6:40 AM PRODUCTION LINE WORKER HEMOGLOBIN A1C Routine 04/04/2017 6:40 AM PRODUCTION LINE WORKER TROPONIN Timed 04/04/2017 6:40 AM [employer]ODUCTION LINE WORKER LACTIC ACID LEVEL Timed 04/04/2017 6:40 AM PRODUCTION LINE WORKER PHOSPHORUS LEVEL STAT 04/04/2017 6:40 AM PRODUCTION LINE WORKER TROPONIN STAT 04/04/2017 6:40 AM PRODUCTION LINE WORKER MAGNESIUM LEVEL STAT 04/04/2017 6:40 AM PRODUCTION LINE WORKER ZZESTIMATED GFR STAT 04/04/2017 6:40 AM PRODUCTION LINE WORKER LACTIC ACID LEVEL STAT 04/04/2017 6:40 AM PRODUCTION LINE WORKER LIPASE LEVEL STAT 04/04/2017 6:40 AM PRODUCTION LINE WORKER HC COMPLETE BLD COUNT STAT 04/04/2017 W/AUTO DIFF 6:40 AM PRODUCTION LINE WORKER COMPREHENSIVE METABOLIC STAT 04/04/2017 PANEL 6:40 AM PRODUCTION LINE WORKER URINALYSIS SCREEN AND Routine 04/04/2017 MICROSCOPY, WITH REFLEX 6:40 AM PRODUCTION LINE WORKER TO CULTURE URINE CULTURE Routine 04/04/2017 6:40 AM PRODUCTION LINE WORKER ECG 12-LEAD STAT 04/04/2017 6:02 AM PRODUCTION LINE WORKER after 03/16/2017 Results * ECG ED Preliminary Interpretation - NOT AN ORDER (04/11/2017 10:24 AM PRODUCTION LINE WORKER) Only the most recent of 2 results within the time period is included. Narrative Performed At Beka Ruvalcaba MD 04/11/2017 10:24 AM ECG ED Preliminary Interpretation - Not an Order Performed by: BEKA RUVALCABA Authorized by: BEKA RUVALCABA ECG reviewed by ED Physician in the absence of a radioisotope technologist: yes Interpretation: Interpretation: normal Rate: ECG rate:59 ECG rate assessment: normal Rhythm: Rhythm: sinus rhythm Ectopy: Ectopy: none QRS: QRS axis:Normal Conduction: Conduction: normal ST segments: ST segments:Normal T waves: T waves: normal * CT Abdomen Pelvis W Contrast (04/10/2017 8:19 AM PRODUCTION LINE WORKER) Only the most recent of 2 results [...] are no prior remote comparison exams available. [facility]-[id number] Procedure Note Interface, Radiology Results Incoming - 04/10/2017 8:31 AM PRODUCTION LINE WORKER EXAMINATION: CT ABDOMEN PELVIS W CONTRAST CLINICAL [...] are no prior remote comparison exams available. [facility]-[id number] Performing Organization Address City/State/Zipcode Phone Number [facility] [address] [place] [address] * ECG 12 lead (04/10/2017 7:39 AM PRODUCTION LINE WORKER) Only the most recent of 2 results within the time period is included. Ventricular rate 59 [facility] Atrial rate 59 [facility] [place] interval 94 [facility] QRSD interval 92 [facility] QT interval 420 [facility] QTC interval 415 [facility] P axis 1 60 [facility] QRS axis 1 2 [facility] T wave axis 59 [facility] MUSE EKG impression Sinus bradycardia with short [facility] MUSE [place]-Otherwise normal ECG-In automated comparison with ECG of 10-APR-2017 07:37,-No significant change was found- Performing Organization Address City/[facility] Phone Number [facility] MUSE [address] [place] [address] * Estimated GFR (04/10/2017 6:35 AM PRODUCTION LINE WORKER) Only the most recent of 4 results within the time period is included. GFR Non Af Amer >90 mL/min/1.73 m2 [facility] DEPARTMENT OF PATHOLOGY AND [place] [facility] GFR Af Amer >90 mL/min/1.73 m2 [facility] DEPARTMENT OF Comment: PATHOLOGY AND Chronic kidney [...] Americans. Specimen Plasma specimen Performing Organization Address [facility] Phone Number [address] [place] [address] PATHOLOGY AND [facility] * Troponin (04/10/2017 6:35 AM PRODUCTION LINE WORKER) Only the most recent of 3 results within the time period is included. Troponin <0.300 0.000 - 0.300 ng/mL [facility] DEPARTMENT OF Comment: PATHOLOGY AND 0.30 - 1.49 GENOMIC MEDICINE ng/mlMay indicate increased risk of acute coronary syndrome. >=1.5 ng/ml Consistent with acute myocardial infarction. The diagnostic value of a single normal or non-diagnostic result is questionable.Serial samples at 2-6 hour intervals are required to rule out acute myocardial injury. Specimen Plasma specimen Performing Organization Address [facility] Phone Number [address] [place] [address] PATHOLOGY AND [facility] * CBC with platelet and differential (04/10/2017 6:35 AM PRODUCTION LINE WORKER) Only the most recent of 4 results within the time period is included. WBC 9.32 4.50 - 11.00 k/uL [facility] DEPARTMENT OF PATHOLOGY AND GENOMIC MEDICINE RBC 4.57 4.40 - 6.00 m/uL [facility] DEPARTMENT OF PATHOLOGY AND GENOMIC MEDICINE HGB 14.1 14.0 - 18.0 g/dL [facility] DEPARTMENT OF PATHOLOGY AND GENOMIC MEDICINE HCT 41.4 41.0 - 51.0 % [facility] DEPARTMENT OF PATHOLOGY AND GENOMIC MEDICINE MCV 90.6 82.0 - 100.0 fL [facility] DEPARTMENT OF PATHOLOGY AND GENOMIC MEDICINE MCH 30.9 27.0 - 34.0 pg [facility] DEPARTMENT OF PATHOLOGY AND GENOMIC MEDICINE MCHC 34.1 31.0 - 37.0 g/dL [facility] DEPARTMENT OF PATHOLOGY AND GENOMIC MEDICINE RDW - SD 42.0 37.0 - 55.0 fL [facility] DEPARTMENT OF PATHOLOGY AND GENOMIC MEDICINE MPV 12.8 8.8 - 13.2 fL [facility] DEPARTMENT OF PATHOLOGY AND GENOMIC MEDICINE Platelet count 151 150 - 400 k/uL [facility] DEPARTMENT OF PATHOLOGY AND GENOMIC MEDICINE Nucleated RBC 0.00 /100 WBC [facility] DEPARTMENT OF PATHOLOGY AND GENOMIC MEDICINE Neutrophils 65.8 39.0 - 69.0 % [facility] DEPARTMENT OF PATHOLOGY AND GENOMIC MEDICINE Lymphocytes 25.4 25.0 - 45.0 % [facility] DEPARTMENT OF PATHOLOGY AND GENOMIC MEDICINE Monocytes 6.2 0.0 - 10.0 % [facility] DEPARTMENT OF PATHOLOGY AND GENOMIC MEDICINE Eosinophils 1.7 0.0 - 5.0 % [facility] DEPARTMENT OF PATHOLOGY AND GENOMIC MEDICINE Basophils 0.5 0.0 - 1.0 % [facility] DEPARTMENT OF PATHOLOGY AND GENOMIC MEDICINE Immature granulocytes 0.4Comment: "Immature 0.0 - 1.0 % [facility] DEPARTMENT OF granulocytes" (promyelocytes, PATHOLOGY AND myelocytes, metamyelocytes) [facility] Specimen Blood Performing Organization Address City/State/Zipcode Phone [place] [facility] [place] [address] [place] [id number] PATHOLOGY AND [facility] * Lipase level (04/10/2017 6:35 AM PRODUCTION LINE WORKER) Only the most recent of 4 results within the time period is included. Lipase 46 13 - 60 U/L [facility] DEPARTMENT OF PATHOLOGY AND GENOMIC MEDICINE Specimen Plasma specimen Performing Organization Address City/[facility]/Zipcode Phone Number [facility] [place] [address] [place] [address] PATHOLOGY AND [facility] MEDICINE * Lactic acid level (04/10/2017 6:35 AM PRODUCTION LINE WORKER) Only the most recent of 3 results within the time period is included. Lactic acid 1.1 0.5 - 2.2 mmol/L [facility] DEPARTMENT OF PATHOLOGY AND [facility] Specimen Plasma specimen Performing Organization Address City/[facility]/Zipcode Phone Number [facility] [place] [address] [place] [address] PATHOLOGY [facility] * Comprehensive metabolic panel (04/10/2017 6:35 AM PRODUCTION LINE WORKER) Only the most recent of 2 results within the time period is included. Sodium 139 135 - 148 mEq/L [facility] DEPARTMENT OF PATHOLOGY AND GENOMIC MEDICINE Potassium 5.4 (H) 3.5 - 5.0 mEq/L [facility] DEPARTMENT OF PATHOLOGY AND GENOMIC MEDICINE Chloride 100 98 - 112 mEq/L [facility] DEPARTMENT OF PATHOLOGY AND GENOMIC MEDICINE CO2 27 24 - 31 mEq/L [facility] DEPARTMENT OF PATHOLOGY AND GENOMIC MEDICINE Anion gap 12 7 - 15 mEq/L [facility] DEPARTMENT OF Comment: PATHOLOGY AND Starting from July [facility] , anion gap calculation no longer incorporates potassium. Please note the change. BUN 14 8 - 23 mg/dL [facility] DEPARTMENT OF PATHOLOGY AND GENOMIC MEDICINE Creatinine 0.7 0.7 - 1.2 mg/dL [facility] DEPARTMENT OF PATHOLOGY AND GENOMIC MEDICINE Glucose 168 (H) 65 - 99 mg/dL [facility] DEPARTMENT OF PATHOLOGY AND GENOMIC MEDICINE Calcium 9.5 8.8 - 10.2 mg/dL [facility] DEPARTMENT OF PATHOLOGY AND GENOMIC MEDICINE Protein 7.4 6.3 - 8.3 g/dL [facility] DEPARTMENT OF Comment: PATHOLOGY AND [place] GENOMIC MEDICINE 4.6-7.0 g/dL 1 week 4.4-7.6 g/dL 7 months-1year 5.1-7.3 g/dL 1-2 years5.6-7 .5 g/dL >3 years6.0-8 .0 g/dL 18-150 6.3-8.3 g/dL Albumin 3.8 3.5 - 5.0 g/dL [facility] DEPARTMENT OF PATHOLOGY AND GENOMIC MEDICINE A/G ratio 1.1 0.7 - 3.8 [facility] DEPARTMENT OF PATHOLOGY AND GENOMIC MEDICINE Alkaline phosphatase 93 40 - 129 U/L [facility] DEPARTMENT OF PATHOLOGY AND GENOMIC MEDICINE AST 18 10 - 50 U/L [facility] DEPARTMENT OF PATHOLOGY AND GENOMIC MEDICINE ALT 13 5 - 50 U/L [facility] DEPARTMENT OF PATHOLOGY AND GENOMIC MEDICINE Total bilirubin 0.6 0.0 - 1.2 mg/dL [facility] DEPARTMENT OF PATHOLOGY AND [facility] Specimen Plasma specimen Performing Organization Address [facility] Phone Number [address] [place] [address] PATHOLOGY AND [facility] * POC glucose (04/06/2017 11:14 AM PRODUCTION LINE WORKER) Only the most recent of 11 results within the time period is included. POC glucose 263 (H) 65 - 99 mg/dL [facility] DEPARTMENT OF Comment: PATHOLOGY AND Meter ID: [id number] [facility] [employer] Teacher: Gautam eZpeda Performing Organization Address City/[facility] Phone Number [address] * Basic metabolic panel (04/06/2017 7:38 AM PRODUCTION LINE WORKER) Only the most recent of 2 results within the time period is included. Sodium 138 135 - 148 mEq/L [facility] DEPARTMENT OF PATHOLOGY AND [facility] Potassium 4.3 3.5 - 5.0 mEq/L [facility] DEPARTMENT OF PATHOLOGY AND [place] [facility] Chloride 101 98 - 112 mEq/L [facility] DEPARTMENT OF PATHOLOGY AND [place] [facility] CO2 27 24 - 31 mEq/L [facility] DEPARTMENT OF PATHOLOGY AND [facility] Anion gap 10 7 - 15 mEq/L [facility] DEPARTMENT OF Comment: PATHOLOGY AND Starting from July [facility] , anion gap calculation no longer incorporates potassium. Please note the change. BUN 8 8 - 23 mg/dL [facility] DEPARTMENT OF PATHOLOGY AND [facility] Creatinine 0.7 0.7 - 1.2 mg/dL [facility] DEPARTMENT OF PATHOLOGY AND GENOMIC MEDICINE Glucose 211 (H) 65 - 99 mg/dL [facility] DEPARTMENT OF PATHOLOGY AND GENOMIC MEDICINE Calcium 8.9 8.8 - 10.2 mg/dL [facility] DEPARTMENT OF PATHOLOGY AND GENOMIC MEDICINE Specimen Plasma specimen Performing Organization Address [facility]/Zipcode Phone Number [facility] [place] [id number] [place] [address] [place] [address] PATHOLOGY AND GENOMIC MEDICINE * FL Small Bowel Series (04/05/2017 1:45 PM PRODUCTION LINE WORKER) Narrative Performed At EXAMINATION:[place] [facility] CL[facility]:sb dilation COMPARISON:None. TECHNIQUE: SMALL BOWEL [...] is preserved. No significant findings are identified. [id number] Procedure Note Interface, Radiology Results Incoming - 04/05/2017 2:42 PM PRODUCTION LINE WORKER EXAMINATION: FL SMALL BOWEL CLINICAL HISTORY: sb [...] is preserved. No significant findings are identified. [id number] Performing Organization Address [facility] Phone Number [facility] [address] [place] [address] * Influenza antigen (04/05/2017 12:30 PM PRODUCTION LINE WORKER) Influenza antigen Negative for Influenza A/B [facility] DEPARTMENT OF antigen. PATHOLOGY AND Comment: GENOMIC MEDICINE Specimen Information Specimen Source: Nares Specimen Site: Right Specimen Nares - Right Performing Organization Address City/[facility]/Zipcode Phone Number [facility] [place] [place] [address] [address] PATHOLOGY AND GENOMIC MEDICINE * US Gallbladder (04/05/2017 9:39 AM PRODUCTION LINE WORKER) Narrative Performed At EXAMINATION:US GALLBLADDER [facility] CLINICAL HISTORY:Cholecystitis COMPARISON:None. FINDINGS: The visualized portion of the liver appears homogeneous with no focal abnormality. The main portal vein measures 1 cm is within the range of normal flow is toward the liver. The gallbladder contains multiple stones. Gallbladder wall is not thickened. The common duct is not dilated measuring approximately 3 mm. IMPRESSION: Gallstones [id number] Procedure Note Interface, Radiology Results Incoming - 04/05/2017 9:48 AM PRODUCTION LINE WORKER EXAMINATION: US GALLBLADDER CLINICAL HISTORY:Cholecystitis COMPARISON: None. FINDINGS: The visualized portion of the liver appears homogeneous with no focal abnormality. The main portal vein measures 1 cm is within the range of normal flow is toward the liver. The gallbladder contains multiple stones. Gallbladder wall is not thickened. The common duct is not dilated measuring approximately 3 mm. IMPRESSION: Gallstones [id number] Performing Organization Address City/[facility]/Zipcode Phone Number [facility] [address] [place] [address] * Manual differential (04/05/2017 5:27 AM PRODUCTION LINE WORKER) Manual differential PERFORMED [facility] DEPARTMENT OF PATHOLOGY AND GENOMIC MEDICINE Neutrophils 72.0 (H) 39.0 - 69.0 % [facility] DEPARTMENT OF PATHOLOGY AND GENOMIC MEDICINE Lymphocytes 20.0 (L) 25.0 - 45.0 % [facility] DEPARTMENT OF PATHOLOGY AND GENOMIC MEDICINE Monocytes 4.0 0.0 - 10.0 % [facility] DEPARTMENT OF PATHOLOGY AND GENOMIC MEDICINE Eosinophils 0.0 0.0 - 5.0 % [facility] DEPARTMENT OF PATHOLOGY AND GENOMIC MEDICINE Basophils 0.0 0.0 - 1.0 % [facility] DEPARTMENT OF PATHOLOGY AND GENOMIC MEDICINE Metamyelocytes 0 % [facility] DEPARTMENT OF PATHOLOGY AND GENOMIC MEDICINE Promyelocytes 0 % [facility] DEPARTMENT OF PATHOLOGY AND GENOMIC MEDICINE Reactive lymphocytes 4.0 [facility] DEPARTMENT OF PATHOLOGY AND GENOMIC MEDICINE Platelet slide review Davidson slt decr [facility] DEPARTMENT OF PATHOLOGY AND GENOMIC MEDICINE Performing Organization Address City/State/Zipcode Phone Number [address] [place] [address] PATHOLOGY [facility] GENOMIC MEDICINE * Hepatitis acute panel (04/04/2017 6:45 PM PRODUCTION LINE WORKER) Hepatitis A IgM Nonreactive Non-reactive [facility] DEPARTMENT OF PATHOLOGY AND GENOMIC MEDICINE Hepatitis B core IgM Nonreactive Non-reactive [facility] DEPARTMENT OF PATHOLOGY AND GENOMIC MEDICINE Hepatitis B surface Ag Nonreactive Non-reactive [facility] DEPARTMENT OF PATHOLOGY AND GENOMIC MEDICINE Hepatitis C Ab Nonreactive Non-reactive [facility] DEPARTMENT OF PATHOLOGY AND GENOMIC MEDICINE Specimen Serum Performing Organization Address [facility] Phone Number [address] [place] [address] PATHOLOGY AND GENOMIC MEDICINE * Prothrombin time with INR (04/04/2017 6:45 PM PRODUCTION LINE WORKER) Prothrombin time 14.1 12.0 - 15.0 sec [facility] DEPARTMENT OF PATHOLOGY AND GENOMIC MEDICINE INR 1.1 [facility] DEPARTMENT OF Comment: PATHOLOGY AND The International Normalized GENOMIC MEDICINE Ratio (INR) is a therapeutic monitoring tool for patients who are stable on oral anticoagulant therapy. An INR of 2.0-3.0 is suggested for deep vein thrombosis/pulmonary embolism. Specimen Blood Performing Organization Address [facility] Phone Number [address] [place] [id number] PATHOLOGY AND GENOMIC MEDICINE * XR Chest 2 Vw (04/04/2017 6:49 AM PRODUCTION LINE WORKER) Narrative Performed At EXAMINATION: XR CHEST 2 VW [facility] INDICATION: epigastric pain COMPARISON: None IMPRESSION: Heart size is within normal limits. No focal infiltrate, effusion, or pneumothorax. Small metallic radiodensities projecting over the right thorax. Multilevel spondylosis thoracic spine. Small eventration right hemidiaphragm. [id number] Procedure Note Interface, Radiology Results Incoming - 04/04/2017 7:02 AM PRODUCTION LINE WORKER EXAMINATION: XR CHEST 2 VW INDICATION: epigastric pain COMPARISON: None IMPRESSION: Heart size is within normal limits. No focal infiltrate, effusion, or pneumothorax. Small metallic radiodensities projecting over the right thorax. Multilevel spondylosis thoracic spine. Small eventration right hemidiaphragm. [facility]-[id number] Performing Organization Address [facility]/Zipcode Phone Number [facility] [address] [place] [address] * Urinalysis screen and microscopy, with reflex to culture (04/04/2017 6:40 AM PRODUCTION LINE WORKER) Specimen site Clean catch [facility] DEPARTMENT OF PATHOLOGY AND GENOMIC MEDICINE Color, UA Straw [facility] DEPARTMENT OF PATHOLOGY AND GENOMIC MEDICINE Appearance, UA Clear [facility] DEPARTMENT OF PATHOLOGY AND GENOMIC MEDICINE Specific gravity, UA 1.008 1.001 - 1.035 [facility] DEPARTMENT OF PATHOLOGY AND GENOMIC MEDICINE pH, UA 5.0 5.0 - 8.5 [facility] DEPARTMENT OF PATHOLOGY AND GENOMIC MEDICINE Protein, UA Negative Negative [facility] DEPARTMENT OF PATHOLOGY AND GENOMIC MEDICINE Glucose, UA 1+ (A) Negative [facility] DEPARTMENT OF PATHOLOGY AND GENOMIC MEDICINE Ketones, UA 1+ (A) Negative [facility] DEPARTMENT OF PATHOLOGY AND GENOMIC MEDICINE Bilirubin, UA Negative Negative [facility] DEPARTMENT OF PATHOLOGY AND GENOMIC MEDICINE Blood, UA Small (A) Negative [facility] DEPARTMENT OF PATHOLOGY AND GENOMIC MEDICINE Nitrite, UA Negative Negative [facility] DEPARTMENT OF PATHOLOGY AND GENOMIC MEDICINE Urobilinogen, UA Negative <2.0 [facility] DEPARTMENT OF PATHOLOGY AND GENOMIC MEDICINE Leukocyte esterase, UA Negative Negative [facility] DEPARTMENT OF PATHOLOGY AND GENOMIC MEDICINE WBC, UA 0-5 0 - 1 /HPF [facility] DEPARTMENT OF PATHOLOGY AND GENOMIC MEDICINE RBC, UA 0-5 0 - 1 /HPF [facility] DEPARTMENT OF PATHOLOGY AND GENOMIC MEDICINE Bacteria, UA None seen None seen [facility] DEPARTMENT OF PATHOLOGY AND GENOMIC MEDICINE Yeast, UA None seen [facility] DEPARTMENT OF PATHOLOGY AND GENOMIC MEDICINE Yeast with pseudohyphae, None seen [facility] DEPARTMENT OF UA PATHOLOGY AND GENOMIC MEDICINE Granular casts, UA 2-5 (H) 0 - 1 /LPF [facility] DEPARTMENT OF PATHOLOGY AND GENOMIC MEDICINE Specimen Urine Performing Organization Address [facility] Phone Number [address] [place] [address] PATHOLOGY AND [facility] MEDICINE * Urine culture (04/04/2017 6:40 AM PRODUCTION LINE WORKER) Urine culture SEE COMMENTComment: [facility] DEPARTMENT OF Bacteriuria screen negative. PATHOLOGY AND [facility] MEDICINE Specimen Urine Performing Organization Address [facility] Phone Number [address] [place] [address] PATHOLOGY [facility] * Phosphorus level (04/04/2017 6:40 AM PRODUCTION LINE WORKER) Phosphorus 2.9 2.4 - 4.5 mg/dL [facility] DEPARTMENT OF PATHOLOGY AND GENOMIC MEDICINE Specimen Plasma specimen Performing Organization Address [facility] Phone Number [address] [place] [address] PATHOLOGY [facility] * Magnesium level (04/04/2017 6:40 AM PRODUCTION LINE WORKER) Magnesium 1.9 1.6 - 2.4 mg/dL [facility] DEPARTMENT OF PATHOLOGY AND GENOMIC MEDICINE Specimen Plasma specimen Performing Organization Address [facility] Phone Number [facility] [id number] [place] [address] [place] [address] PATHOLOGY AND [facility] * Hemoglobin A1c (04/04/2017 6:40 AM PRODUCTION LINE WORKER) Hemoglobin A1C 6.4 (H) 4.0 - 6.0 % [facility] DEPARTMENT OF Comment: PATHOLOGY AND GENOMIC MEDICINE Less than 6% - Goal of therapy for Type II Diabetes Less than 7%-Goal of therapy for Type I Diabetes Less than 8%-Accepta ble control for Type I or Type II Diabetes Greater than 8%-Unacceptabl e control; action indicated. ([id number]) Specimen Blood Performing Organization Address [facility] Phone Number [address] [place] [address] PATHOLOGY AND [facility] MEDICINE * Lipid panel (04/04/2017 6:40 AM PRODUCTION LINE WORKER) Cholesterol 121 <200 mg/dL [facility] DEPARTMENT OF PATHOLOGY AND GENOMIC MEDICINE Triglycerides 82 <150 mg/dL [facility] DEPARTMENT OF PATHOLOGY AND GENOMIC MEDICINE HDL cholesterol 54 >40 mg/dL [facility] DEPARTMENT OF PATHOLOGY AND GENOMIC MEDICINE LDL cholesterol 56Comment: Result obtained by <100 mg/dL [facility] DEPARTMENT OF direct LDL measurement PATHOLOGY AND [facility] Lipid panel SeeBelow [facility] DEPARTMENT OF interpretation Comment: PATHOLOGY AND Total [...] Performing Organization Address City/State/Zipcode Phone Number [facility] [place] [phone] [place] [address] PATHOLOGY AND GENOMIC MEDICINE after 03/16/2017 Insurance Payer Benefit Subscriber ID Type Phone Address Plan / Group [employer] CIGNA xxxxxxxx HMO [employer] NG HMO MCR ADV Advance Directives Patient has advance care planning documents, and code status on file. For more i nformation, please contact: Chalino Valdez [address] [place] [address] Date Inactivated Comments Code Status Date Activated 04/06/2017 5:42 PM Full Code 04/04/2017 11:24 AM Code Status decision reached by: Patient
--- OUTSIDE RECORDS SUMMARY | 2018-03-17 01:09 | XMS REPORT ---
Author Author 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 Allergies, Adverse Reactions, Alerts This patient has no known allergies or adverse reactions. Medications This patient has no known medications. Results Test Description Test Time Test Comments Text Results Atomic Results Result Comments ABDOMEN ACUTE SERIES W/PA CXR 2018-03-17 00:16:00 [place] [address] Patient Name: NIKOLAS HAYES MR #: [id number] : 1945 Age/Sex: 73/M Req #: [id number] Adm Physician: Ordered by: DOMONIQUE SAGASTUME MD Report #: [id number] Location: ER Room/Bed: Procedure: [id number] DX/ABDOMEN ACUTE SERIES W/PA CXR Exam Date: 03/16/18 Exam Time: 2343 REPORT STATUS: Signed EXAMINATION: ABDOMEN ACUTE SERIES W/PA CXR INDICATION: Abdominal pain and cough. COMPARISON: None FINDINGS: TUBES and LINES: None. LUNGS: Lungs are well inflated. Lungs are clear. There is no evidence of pneumonia or pulmonary edema. PLEURA: No pleural effusion or pneumothorax. HEART AND MEDIASTINUM: The cardiomediastinal silhouette is unremarkable. BONES AND SOFT TISSUES: No acute osseous lesion. Soft tissues are unremarkable. ABDOMEN: No free air under the diaphragm. Large stool burden. Nonobstructive bowel gas pattern. No suspicious air-fluid levels on upright view. IMPRESSION: No acute thoracic abnormality. Large stool burden. Nonobstructive bowel gas pattern. Signed by: DR. Jaden Herron MD on 03/17/2018 12:19 AM Dictated By: JADEN HERRON MD Transcribed By: LUCILA on 03/17/1818 COPY TO: DOMONIQUE SAGASTUME MD
[2018-03-17] MEDS ORDERED: HYDROMORPHONE 2MG/ML 2 MG/ML ML ONE ×2 (01:16→06:15)
[2018-03-17] MEDS ORDERED: ONDANSETRON HCL INJ 2 MG/ML VIAL ONE (01:16)
[2018-03-17] MEDS: ONDANSETRON HCL INJ 2 MG/ML VIAL IV PRN ×3 (01:23→15:31)
[2018-03-17] MEDS: HYDRALAZINE HCL 20 MG/ML VIAL IV PRN (01:23)
[2018-03-17] MEDS: HYDROMORPHONE 1MG/1ML INJ IV PRN ×2 (01:23→06:31)
[2018-03-17] MEDS ORDERED: ATORVASTATIN CA40 MG PO (01:31)
--- NOTE | 2018-03-17 06:29 | NUR ---
PT PRESSED CALL EWLDON REPORTING THAT HIS PAIN HAS COME BACK. 11/09. PAIN MEDICINE GIVEN AT THIS TIME
[2018-03-17 07:08] LABS: CHOL/HDL RATIO 2.4 (3.9-4.7)
[2018-03-17] MEDS: INSULIN REGULAR, HUMAN 100 UNIT/1 ML 3ML VIAL SQ SCH ×4 (08:42→21:00)
[2018-03-17] MEDS ORDERED: INSULIN DETEMIR 100 UNIT/ML PEN SQ SCH (09:00)
--- NOTE | 2018-03-17 11:15 | NUR ---
REPORT AND PATIENT CARE ENDORSED TO HENRI PFEIFFER
--- NOTE | 2018-03-17 11:20 | Diagnostic Imaging Report ---
EXAM: Magnetic Resonance Cholangiopancreatography (M.R.C.P.) INDICATION: ^EVAL FOR RETAINED GALLSTONE ^Y COMPARISON: None. TECHNIQUE: Multiplanar, multisequence MRCP was performed, with sequences including coronal turbo spin-echo T1-weighted scans, [facility] MRCP scans, coronal spin, coronal MPR 2, SMRCP 3D HR, [facility] MRCP [place]. IV Contrast: None Oral Contrast: None Medications: None COMPLICATIONS: None FINDINGS: LOWER THORAX: Unremarkable. HEPATOBILIARY: No focal hepatic lesions. No intra or extra hepatic biliary ductal dilation. No filling defects or strictures within the biliary ducts. GALLBLADDER: Surgically absent. SPLEEN: No splenomegaly. PANCREAS: No focal masses or ductal dilatation. ADRENALS: No adrenal nodules KIDNEYS/URETERS: No hydronephrosis. No cystic or solid mass lesions. No stones. GI TRACT: No abnormal distention, wall thickening, or evidence of bowel obstruction. Appendix is normal. LYMPH NODES: No lymphadenopathy. VESSELS: Unremarkable. PERITONEUM / RETROPERITONEUM: No free air or fluid. BONES: Unremarkable. SOFT TISSUES: Unremarkable. IMPRESSION: 1. Cholecystectomy. 2. Normal intra and extrahepatic biliary ducts. Signed by: Dr. Giselle Orozco M.D. on 03/17/2018 11:16 AM
[2018-03-17] MEDS: FAMOTIDINE 20 MG/2 ML VIAL IV SCH ×2 (11:28→17:36)
[2018-03-17] MEDS: FINASTERIDE 5 MG TAB PO SCH (11:28)
[2018-03-17] MEDS ORDERED: HYDROMORPHONE 2MG/ML 2 MG/ML ML IV PRN (11:30)
[2018-03-17] MEDS: AZITHROMYCIN 500MG/NS 250 ML 250 ML IV SCH (13:00)
--- NOTE | 2018-03-17 13:10 | History and Physical ---
ADDENDUM We will also followup the MRCP and further assess the gallbladder. Job#: [id number] GARETH
--- NOTE | 2018-03-17 13:27 | History and Physical ---
PRIMARY CARE PHYSICIAN: Dr. Tha Emanuel. CHIEF COMPLAINT: Abdominal pain. HISTORY OF PRESENT ILLNESS: This is a 73-year-old man with a history of diabetes mellitus, now developing abdominal pain for 1 day in the epigastric region. No nausea, vomiting, or diarrhea. Found to have acute pancreatitis and admitted for further evaluation and management. Patient also found to have markedly elevated blood pressure. Patient also has been complaining of cough, which has been ongoing for several days as he continues to smoke cigarettes. PAST MEDICAL HISTORY: Diabetes mellitus, hypertension, hyperlipidemia, BPH, cigarette use. PAST SURGICAL HISTORY: Cholecystectomy. ALLERGIES: PER ELECTRONIC MEDICAL RECORD. FAMILY AND SOCIAL HISTORY: Patient is , has 3 children. Occasional alcohol use, quantity unknown. Smokes half a pack of cigarette per day. MEDICATIONS: Per electronic medical record. REVIEW OF SYSTEMS: Denies any fevers, chills, sweats, nausea, vomiting, diarrhea, headache, vision changes, or leg pain. PHYSICAL EXAMINATION VITAL SIGNS: Reviewed. GENERAL: A tired-appearing man, resting in bed. HEENT: Anicteric. CARDIOVASCULAR: Normal S1, S2. LUNGS: Clear breath sounds. ABDOMEN: Soft, nondistended. Epigastrium is tender. EXTREMITIES: No edema or calf tenderness. NEUROLOGIC: Alert and oriented x3. Moving all extremities. SKIN: Dry. PSYCHIATRIC: Normal affect. LABS: Reviewed. MEDICATIONS: Reviewed. ASSESSMENT: This is a 73-year-old man with; 1. Hypertensive emergency. 2. Acute pancreatitis. 3. Constipation. 4. Benign prostatic hypertrophy. 5. Hyperlipidemia. 6. Diabetes mellitus type 2. 7. Acute bronchitis. PLAN 1. Control blood pressure. 2. Continue IV fluids for acute pancreatitis. 3. Treat the acute bronchitis with azithromycin and antitussive medication. 4. Obtain hemoglobin A1c and lipid panel. 5. Will use Lovenox and Pepcid for prophylaxis. 6. Aggressive rehydration. Keep patient n.p.o. and reassess lipase in the morning. Job#: [id number] WILLIE
[2018-03-17] MEDS: BENZONATATE 100 MG CAP PO SCH ×2 (16:00→21:00)
[2018-03-17] MEDS: ENOXAPARIN SOD INJ 40 MG/0.4 ML SYR SC SCH (17:36)
--- NOTE | 2018-03-17 17:54 | NUR ---
Patient admitted to unit from ER. Patient c/o abdominal pain x2 days. Patient is AAOx3. Patient is NPO at this time. Lung mena clear to auscultation. Bowel sounds present x4. Some tenderness noted to the right lower quadrant. No edema noted. patient ambulates on his own. Right forearm IV in place. IV fluids infusing at this time.
[2018-03-17 18:03] VITALS: BP 145/65
[2018-03-17 18:07] VITALS: BP 145/65
[2018-03-17 18:11] VITALS: BP 145/65
--- NOTE | 2018-03-17 18:33 | NUR ---
Patient has a dry cough with some wheezing noted. No shortness of breath noted at this time.
--- NOTE | 2018-03-17 19:30 | NUR ---
REPORT TAKEN .ASSESSMENT DONE.COUGH AND WHEEZING NOTED.NOTIFIED TO .RECEIVED NEW ORDERS.CHEST X RAY TAKEN.GETTING NEB. TREATMENT .NO RESP.DISTRESS.BED LOCKED AND IN LOWEST POSITION.PHONE AND CALL LIGHT WITHIN REACH.INSTRUCTED TO CALL FOR ASSISTANCE NEEDED.KEEP MONITORING THE PT.
[2018-03-17 20:00] VITALS: BP 134/60
[2018-03-17] MEDS: ATORVASTATIN 40 MG TAB PO SCH (21:00)
[2018-03-17] MEDS: TAMSULOSIN HCL 0.4 MG CAP PO SCH (21:00)
[2018-03-17 21:02] VITALS: BP 134/60
--- NOTE | 2018-03-17 22:43 | Diagnostic Imaging Report ---
EXAMINATION: CHEST 2 VIEWS INDICATION: COUGH AND WHEEZING COMPARISON: Chest x-ray 03/16/2018. [facility]. FINDINGS: PA and lateral views TUBES and LINES: None. LUNGS: Lungs are well inflated. Lungs are clear. There is no evidence of pneumonia or pulmonary edema. PLEURA: Trace right pleural effusion. No left pleural effusion. No pneumothorax. HEART AND MEDIASTINUM: The cardiomediastinal silhouette is unremarkable. BONES AND SOFT TISSUES: There are degenerative changes in the thoracic spine. Scattered punctate radiopaque densities. UPPER ABDOMEN: No free air under the diaphragm. There are cholecystectomy clips. IMPRESSION: Trace right pleural effusion. No consolidations. Signed by: DR. Jaden Herron MD on 03/17/2018 10:40 PM
[2018-03-18] VITALS (7 sets, daily range): BP systolic 111–168; BP diastolic 56–72
[2018-03-18] MEDS: ALBUTEROL/IPRATROPIUM 3 ML NEB NEB PRN ×4 (00:15→23:41)
[2018-03-18] MEDS: HYDRALAZINE HCL 20 MG/ML VIAL IV PRN (05:24)
[2018-03-18] MEDS: SODIUM CHLORIDE 0.9% 1000ML 1,000 ML IV SCH ×2 (05:39→17:40)
[2018-03-18 05:54] LABS: BASOPHILS % 0.4 % (0.0-1.0); EOSINOPHILS % 0.4 % (0.0-6.0); HEMATOCRIT 38.6 % (38.2-49.6); HEMOGLOBIN 12.2 g/dL (14.0-18.0); LYMPHOCYTES # (AUTO) 1.2 (1.0-3.2); LYMPHOCYTES % 15.8 % (18.0-39.1); MEAN CORPUSCULAR HGB CONC 31.6 g/dL (31-35); MONOCYTES # (AUTO) 0.5 (0.2-0.8); MONOCYTES % 6.7 % (4.4-11.3); NEUTROPHILS # (AUTO) 5.7 (2.1-6.9); NEUTROPHILS % 76.6 % (38.7-80.0); PLATELET COUNT 95 x10e3/uL (140-360); RED BLOOD COUNT 3.94 x10e6/uL (4.3-5.7); RED CELL DISTRIBUTION WIDTH 12.7 % (11.7-14.4)
[2018-03-18 06:10] LABS: ALANINE AMINOTRANSFERASE 11 IU/L (0-55); ALBUMIN 2.8 g/dL (3.5-5.0); ALBUMIN/GLOBULIN RATIO 0.9 (0.8-2.0); ALKALINE PHOSPHATASE 65 IU/L (40-150); AMYLASE 89 U/L (25-125); ANION GAP 12.8 mmol/L (8-16); BLOOD UREA NITROGEN 9 mg/dL (7-26); BUN/CREATININE RATIO 13 (6-25); CALCIUM 8.2 mg/dL (8.4-10.2); CARBON DIOXIDE 21 mmol/L (22-29); CHLORIDE 112 mmol/L (98-107); EST GLOMERULAR FILTRATION RATE > 60 ML/MIN (60-); LIPASE 63 U/L (8-78); POTASSIUM 3.8 mmol/L (3.5-5.1); SODIUM 142 mmol/L (136-145)
[2018-03-18 06:12] LABS: GLUCOSE 59 mg/dL (74-118)
--- NOTE | 2018-03-18 06:18 | NUR ---
BLOOD SUGAR 59.50% DEXTROSE 25 GRAMS IV GIVEN.
--- NOTE | 2018-03-18 06:50 | NUR ---
REPORT GIVEN TO THE ONCOMING RN.WALKING ROUNDS DONE.STABLE CONDITION.
--- NOTE | 2018-03-18 07:17 | NUR ---
IM-Progress Note O/N; no events REVIEW OF SYSTEMS: Denies any fevers, chills, sweats, nausea, vomiting, diarrhea, headache, vision changes, or leg pain. PHYSICAL EXAMINATION VITAL SIGNS: Reviewed. GENERAL: A tired-appearing man, resting in bed. HEENT: Anicteric. CARDIOVASCULAR: Normal S1, S2. LUNGS: Clear breath sounds. ABDOMEN: Soft, nondistended. Epigastrium is tender. EXTREMITIES: No edema or calf tenderness. NEUROLOGIC: Alert and oriented x3. Moving all extremities. SKIN: Dry. PSYCHIATRIC: Normal affect. LABS: Reviewed. MEDICATIONS: Reviewed. ASSESSMENT: This is a 73-year-old man with; 1. Hypertensive emergency. 2. Acute pancreatitis. 3. Constipation. 4. Benign prostatic hypertrophy. 5. Hyperlipidemia. 6. Diabetes mellitus type 2. 7. Acute bronchitis. PLAN 1. Control blood pressure. 2. Continue IV fluids for acute pancreatitis. 3. Treat the acute bronchitis with azithromycin and antitussive medication. 4. Obtain hemoglobin A1c and lipid panel. 5. Will use Lovenox and Pepcid for prophylaxis. 6. Aggressive rehydration. Keep patient n.p.o. and reassess lipase in the morning. 7.F/U MRCP 121/17 MRCP normal ducts; BP better; hypoglycemia- reduce meds; Start lunch CLD. lipase in am. Rito Araujo MD, PhD.
[2018-03-18] MEDS: INSULIN REGULAR, HUMAN 100 UNIT/1 ML 3ML VIAL SQ SCH ×4 (08:29→21:18)
[2018-03-18] MEDS: INSULIN DETEMIR 100 UNIT/ML PEN SQ SCH (08:29)
[2018-03-18] MEDS: BENZONATATE 100 MG CAP PO SCH ×3 (09:29→21:05)
[2018-03-18] MEDS: FINASTERIDE 5 MG TAB PO SCH (09:29)
[2018-03-18] MEDS: NIFEDIPINE CR 30 MG TAB PO SCH ×2 (09:29→21:05)
[2018-03-18] MEDS: FAMOTIDINE 20 MG/2 ML VIAL IV SCH ×2 (09:29→17:36)
--- NOTE | 2018-03-18 09:29 | NUR ---
assessment complete no distress noted, updated on poc voiced understanding, co pain 3/10 to abdomen after eating refuses pain meds at this time, ivf infusing to r ac 20g no ss of infiltration noted, no other co voiced call light in reach will continue to monitor
[2018-03-18] MEDS: AZITHROMYCIN 500MG/NS 250 ML 250 ML IV SCH (12:57)
--- NOTE | 2018-03-18 15:33 | NUR ---
Nutrition Screen Note RD Recommendation for Physician: - Rec advancing to GI soft diet as medically appropriate - Hx of gallbladder removal - pt is very aware of what he can/ cannot eat Plan of Care: RD following, monitoring for tolerance and adequacy Nutrition reason for involvement: Nutrition Risk Trigger MST Primary Diagnose(s): 1. Hypertensive emergency. 2. Acute pancreatitis. 3. Constipation. PMH: Diabetes mellitus, hypertension, hyperlipidemia, BPH, cigarette use, gallbladder removal. Ht: 64in Wt: 139lb BMI: 23.9kg/m2 IBW: 130lb RD Assessment: (03/18) Chart reviewed. Labs and meds reviewed. 73 yo M, who is admitted for acute pancreatitis. Pt is currently on clear liquid diet; pt reports of some abdominal discomfort after breakfast this AM. RN (Kelli) is aware. Pt denies nausea or vomiting but reports of constipation since 03/15. Pt reports eating a healthy and mostly vegetarian diet at home with last HbA1C check at 6.2%. Pt wears denture and denies any chewing or swallowing difficulty. No recent weight loss reported. Will continue to monitor and follow. Current Diet: Clear liquid diet Malnutrition Evaluation (03/18/2018) The patient does not meet criteria for a specified degree of malnutrition at this time. Will re-evaluate at follow-up as appropriate. Diet Education Needs Assessment: Diet education not indicated, pt is very aware of what he can/ cannot eat. Nutrition Care Level: low Signed: Raine Steen, MS, RD, LD
[2018-03-18] MEDS: ENOXAPARIN SOD INJ 40 MG/0.4 ML SYR SC SCH (17:37)
[2018-03-18] MEDS: ATORVASTATIN 40 MG TAB PO SCH (21:04)
[2018-03-18] MEDS: TAMSULOSIN HCL 0.4 MG CAP PO SCH (21:04)
[2018-03-19] VITALS: BP_SYST 121; BP_SYST 148; BP_DIAS 59; BP_DIAS 67
[2018-03-19] MEDS: SODIUM CHLORIDE 0.9% 1000ML 1,000 ML IV SCH (00:38)
[2018-03-19 02:55] VITALS: BP 148/67
[2018-03-19 04:00] VITALS: BP 126/59
[2018-03-19] MEDS ORDERED: PEPCID20 MG PO (06:56)
[2018-03-19] MEDS ORDERED: TESSALON PERLE100 MG PO (06:56)
[2018-03-19] MEDS ORDERED: NIFEDIPINE ER30 M1 PO (06:56)
[2018-03-19] MEDS: ALBUTEROL/IPRATROPIUM 3 ML NEB NEB PRN (07:00)
--- NOTE | 2018-03-19 07:01 | NUR ---
Discharge Summary Principal dx; ASSESSMENT: This is a 73-year-old man with; 1. Hypertensive emergency. 2. Acute pancreatitis. 3. Constipation. 4. Benign prostatic hypertrophy. 5. Hyperlipidemia. 6. Diabetes mellitus type 2. 7. Acute bronchitis. [place] Dx: 1.HTN cc and HPI refer to H&P Hospital Course: ASSESSMENT: This is a 73-year-old man with; 1. Hypertensive emergency. 2. Acute pancreatitis. 3. Constipation. 4. Benign prostatic hypertrophy. 5. Hyperlipidemia. 6. Diabetes mellitus type 2. 7. Acute bronchitis. PLAN 1. Control blood pressure. 2. Continue IV fluids for acute pancreatitis. 3. Treat the acute bronchitis with azithromycin and antitussive medication. 4. Obtain hemoglobin A1c and lipid panel. 5. Will use Lovenox and Pepcid for prophylaxis. 6. Aggressive rehydration. Keep patient n.p.o. and reassess lipase in the morning. 7.F/U MRCP 03/18 MRCP normal ducts; BP better; hypoglycemia- reduce meds; Start lunch CLD. lipase in am. 03/19 tolerating CLD; advance to GI soft; if tolerates, d/c home d/c time>35mins d/c location: home d/c meds; see MAR d/c condition: stable f/u pcp 1 week Rito Araujo MD, PhD.
--- NOTE | 2018-03-19 07:05 | NUR ---
Received patient sitting on recliner, call light within reach. AAOX3 to time, person, place. Respirations even and unlabored. Instructed patient to use call light for assistance. Voiced understanding.
[2018-03-19 08:05] VITALS: BP 126/59
[2018-03-19] MEDS: FINASTERIDE 5 MG TAB PO SCH (08:21)
[2018-03-19] MEDS: FAMOTIDINE 20 MG/2 ML VIAL IV SCH (08:21)
[2018-03-19] MEDS: BENZONATATE 100 MG CAP PO SCH (08:21)
[2018-03-19] MEDS: NIFEDIPINE CR 30 MG TAB PO SCH (08:21)
[2018-03-19] MEDS: INSULIN DETEMIR 100 UNIT/ML PEN SQ SCH (08:25)
[2018-03-19] MEDS: INSULIN REGULAR, HUMAN 100 UNIT/1 ML 3ML VIAL SQ SCH (08:25)
--- NOTE | 2018-03-19 09:47 | NUR ---
Right FA IV discontinued. No signs of infiltration noted. 2x2 gauze and tape placed. Taken via wheelchair by PCT to personal car. AAOX4 to time, person, place,situation. Respirations even and unlabored. All personal belonging, rx, and discharge instructions taken with patient. Accompanied by family member.
== END 2018-03-19 09:47 | disposition home or self-care (01) ==
LOC: ER 22:25 → INTOOBSV 03-17 00:39 → ERHOLD 03-17 00:39 → MED/SURG 03-17 17:51
PROVIDERS: ADMIT Internal Medicine; ATTEND Internal Medicine
DX: K85.00 Idiopathic acute pancreatitis without necrosis or infection (principal); K59.00 Constipation, unspecified; E11.9 Type 2 diabetes mellitus without complications; E78.5 Hyperlipidemia, unspecified; N40.0 Benign prostatic hyperplasia without lower urinary tract symptoms; I16.1 Hypertensive emergency; J20.9 Acute bronchitis, unspecified; F17.210 Nicotine dependence, cigarettes, uncomplicated; Z83.3 Family history of diabetes mellitus; Z82.49 Family history of ischemic heart disease and other diseases of the circulatory system; I10 Essential (primary) hypertension; Z79.4 Long term (current) use of insulin
CPT/HCPCS: 36415 ×4; 71046; 74022; 74181; 80053 ×2; 80061; 81001; 82150 ×2; 82550; 82553; 82948 ×3; 83036; 83690 ×3; 84484; 85025 ×2; 93005; 94640 ×3; 99284; G0378 ×3; J0360 ×2; J0456; J1170; J1650 ×2; J1817; J2405; J7030 ×4; J7799 ×2

== ENCOUNTER → 2019-05-07 | Outpatient (CLI) | payer MEDICARE ==
[~2019-05-07] MED LIST changes: +ATORVASTATIN CA40 MG PO; +NIFEDIPINE ER30 M1 PO; +PEPCID20 MG PO; +TESSALON PERLE100 MG PO
--- NOTE | 2019-05-07 12:02 | Diagnostic Imaging Report ---
CT of the chest, without contrast, 05/07/2019. History: History of smoking. Comparison: Chest x-ray 03/17/2018. Technique: Multidetector CT scanning of the chest was performed from the level of the apices to the upper abdomen without contrast. Coronal and sagittal multiplanar reformations were obtained. RADIATION DOSE: Total DLP: 200 mGy*cm Dose modulation, iterative reconstruction, and/or weight based adjustment of the mA/kV was utilized to reduce the radiation dose to as low as reasonably achievable. Discussion: Evaluation is limited without IV contrast. Chest: The heart, aorta, and pulmonary vessels are normal in size. There is calcification of the coronary arteries. The thyroid is unremarkable. There is no gross evidence of adenopathy. Several small metallic densities are present in the right lateral chest wall and right lower lung. There are scattered bilateral linear opacities. There is no evidence of consolidation, mass, or pleural effusion. Limited evaluation of the upper abdomen shows normal adrenal glands. Bones and soft tissues: No acute abnormality. Degenerative changes are noted throughout the thoracic spine. IMPRESSION: Scattered bilateral linear scarring and atelectasis. No acute or suspicious pulmonary abnormality. Signed by: Chris Castanon on 05/07/2019 12:00 PM
== END ==
LOC: CT 10:03
PROVIDERS: ATTEND Internal Medicine Critical Care Medicine
DX: F17.290 Nicotine dependence, other tobacco product, uncomplicated (principal)
CPT/HCPCS: 71250

== ENCOUNTER 2020-04-17 11:47 | Emergency (ER) | payer MEDICARE ==
[~2020-04-17] VITALS: Ht 162.6 cm; Wt 63.0 kg
[2020-04-17 12:23] LABS: BASOPHILS % 0.6 % (0.0-1.0); EOSINOPHILS # (AUTO) 0.1 (0.0-0.4); EOSINOPHILS % 1.3 % (0.0-6.0); HEMATOCRIT 44.7 % (38.2-49.6); HEMOGLOBIN 15.2 g/dL (14.0-18.0); LYMPHOCYTES # (AUTO) 1.4 (1.0-3.2); LYMPHOCYTES % 19.8 % (18.0-39.1); MEAN CORPUSCULAR HEMOGLOBIN 31.5 pg (28-32); MEAN CORPUSCULAR VOLUME 92.5 fL (81-99); MONOCYTES # (AUTO) 0.5 (0.2-0.8); MONOCYTES % 6.5 % (4.4-11.3); NEUTROPHILS # (AUTO) 5.1 (2.1-6.9); NEUTROPHILS % 71.7 % (38.7-80.0); PLATELET COUNT 130 x10e3/uL (140-360); RED BLOOD COUNT 4.83 x10e6/uL (4.3-5.7); RED CELL DISTRIBUTION WIDTH 12.3 % (11.7-14.4)
[2020-04-17 12:46] LABS: ALANINE AMINOTRANSFERASE 13 IU/L (0-55); ALKALINE PHOSPHATASE 111 IU/L (40-150); ANION GAP 13.8 mmol/L (8-16); BLOOD UREA NITROGEN 13 mg/dL (7-26); BUN/CREATININE RATIO 11 (6-25); CALCIUM 9.1 mg/dL (8.4-10.2); CARBON DIOXIDE 28 mmol/L (22-29); CHLORIDE 100 mmol/L (98-107); CREATINE KINASE 40 IU/L (30-200); CREATININE, SERUM 1.14 mg/dL (0.72-1.25); EST GLOMERULAR FILTRATION RATE > 60 ML/MIN (60-); MAGNESIUM 1.7 MG/DL (1.3-2.1); POTASSIUM 3.8 mmol/L (3.5-5.1); SODIUM 138 mmol/L (136-145)
[2020-04-17 12:48] LABS: GLUCOSE 411 mg/dL (74-118)
[2020-04-17] MEDS ORDERED: INSULIN REGULAR, HUMAN 100 UNIT/1 ML 3ML VIAL IV ONE (13:00)
[2020-04-17] MEDS ORDERED: SODIUM CHLORIDE 0.9% 500ML 500 ML IV ONE (13:00)
[2020-04-17 13:36] LABS: THYROID STIMULATING HORMONE 0.863 uIU/mL (0.350-4.940)
[2020-04-17 14:26] VITALS: BP 101/48
== END 2020-04-17 14:31 | disposition home or self-care (01) ==
LOC: ER 12:01
DX: R00.2 Palpitations (principal); I49.1 Atrial premature depolarization; E11.65 Type 2 diabetes mellitus with hyperglycemia; I10 Essential (primary) hypertension; E78.5 Hyperlipidemia, unspecified; F17.210 Nicotine dependence, cigarettes, uncomplicated
CPT/HCPCS: 36415; 71045; 80053; 82550; 82553; 82948; 83735; 84443; 84484; 85025; 93005; 99283; J1817; J7040

== ENCOUNTER 2022-03-05 11:05 | Emergency (ER) | payer MEDICARE ==
[~2022-03-05] VITALS: Ht 162.6 cm; Wt 63.0 kg
[2022-03-05] MEDS ORDERED: MUCINEX DM ER1 EACH PO (13:46)
== END 2022-03-05 13:58 | disposition home or self-care (01) ==
LOC: ER 11:20
DX: R50.9 Fever, unspecified (principal); U07.1 COVID-19; R05.9 Cough, unspecified; I10 Essential (primary) hypertension; E11.9 Type 2 diabetes mellitus without complications; E78.5 Hyperlipidemia, unspecified
CPT/HCPCS: 71046; 99283; U0002

== ENCOUNTER → 2022-11-24 | Day surgery (SDC) | payer MEDICARE ==
[~2022-11-24] MED LIST changes: +AMLODIPINE BESY10 MG PO; +ASPIRIN81 MG PO; +CEFTRIAXONE 1 GM VIAL ONE; +CENTRUM ADULTS1 EACH PO; +DEXAMETHASONE SOD PHOS INJ 4 MG/ML SDV ONE; +FAMOTIDINE20 MG PO; +FENTANYL CITRATE/PF 100MCG/2 ML INJ ONE; +GLYCOPYRROLATE INJ 0.2 MG/ML VIAL ONE; +IOPAMIDOL 610MG/1ML 300 MG/ML VIAL IV ONE; +KERENDIA10 MG PO; -LEVEMIR100 UNIT/1 INJ; +LEVEMIR100 UNIT/1 SC; +LEVEMIR100 UNIT/1 SQ; +LIDOCAINE HCL 2% LOCAL INJ 5 ML SDV VIAL INJ ONE; +METFORMIN HCL500 M2 PO; +METOPROLOL TART25 MG PO; +MIDAZOLAM HCL 2 MG/2 ML VIAL ONE; +MUCINEX DM ER1 EACH PO; +ONDANSETRON HCL INJ 2MG/ML 2ML 2 MG/ML VIAL ONE; +ONDANSETRON ODT4 MG PO; +POVIDONE IODINE 0.05% 0.05 % ML PO ONE; +PROPOFOL IV EMULSION 10 MG/ML 20 ML VIAL ONE; +SEVOFLURANE INHAL SOLN 250 ML PEN BTL ONE; +SODIUM CHLORIDE 0.9% 1000ML 1,000 ML ONE; +VITAMIN B-12500 MCG PO; +VITAMIN D3125 MCG PO
[2022-11-24 12:24] LABS: BASOPHILS # (AUTO) 0.1 (0.0-0.1); BASOPHILS % 0.8 % (0.0-1.0); EOSINOPHILS # (AUTO) 0.1 (0.0-0.4); EOSINOPHILS % 1.7 % (0.0-6.0); HEMATOCRIT 40.4 % (38.2-49.6); HEMOGLOBIN 13.3 g/dL (14.0-18.0); LYMPHOCYTES # (AUTO) 1.8 (1.0-3.2); LYMPHOCYTES % 22.8 % (18.0-39.1); MEAN CORPUSCULAR HEMOGLOBIN 31.3 pg (28-32); MEAN CORPUSCULAR HGB CONC 32.9 g/dL (31-35); MEAN CORPUSCULAR VOLUME 95.1 fL (81-99); MONOCYTES # (AUTO) 0.5 (0.2-0.8); MONOCYTES % 6.8 % (4.4-11.3); NEUTROPHILS # (AUTO) 5.3 (2.1-6.9); NEUTROPHILS % 67.6 % (38.7-80.0); PLATELET COUNT 104 x10e3/uL (140-360); RED BLOOD COUNT 4.25 x10e6/uL (4.3-5.7); RED CELL DISTRIBUTION WIDTH 12.7 % (11.7-14.4)
[2022-11-24 12:43] LABS: ALBUMIN 3.8 g/dL (3.5-5.0); CALCIUM 9.3 mg/dL (8.4-10.2); CREATININE, SERUM 1.54 mg/dL (0.72-1.25)
[2022-11-24 14:58] VITALS: TEMP 97.8
[2022-11-24 16:20] VITALS: BP 123/68; PULSE 60; RESP 17; O2SAT 97
== END | disposition home or self-care (01) ==
LOC: OR 10:43
PROVIDERS: ATTEND Urology
DX: C67.0 Malignant neoplasm of trigone of bladder (principal); C65.2 Malignant neoplasm of left renal pelvis; R31.0 Gross hematuria; N13.39 Other hydronephrosis; N35.812 Other bulbous urethral stricture, male; N40.1 Benign prostatic hyperplasia with lower urinary tract symptoms; N13.8 Other obstructive and reflux uropathy; I12.9 Hypertensive chronic kidney disease with stage 1 through stage 4 chronic kidney disease, or unspecified chronic kidney disease; E11.22 Type 2 diabetes mellitus with diabetic chronic kidney disease; N18.9 Chronic kidney disease, unspecified; Z79.4 Long term (current) use of insulin; Z79.84 Long term (current) use of oral hypoglycemic drugs; R00.1 Bradycardia, unspecified; Z79.899 Other long term (current) drug therapy
CPT/HCPCS: 36415; 52235; 52332; 71046; 74420; 80053; 85025; 88112; 88305; 93005; C1758; C1769; C1874; C2617; J0696; J1100; J2001; J2250; J2405; J2704; J3010; J7030; Q9967; 88304

== ENCOUNTER → 2023-07-20 | Day surgery (SDC) | payer MEDICARE ==
[2023-07-19 10:29] LABS: BASOPHILS # (AUTO) 0.1 (0.0-0.1); BASOPHILS % 0.8 % (0.0-1.0); EOSINOPHILS # (AUTO) 0.1 (0.0-0.4); EOSINOPHILS % 1.5 % (0.0-6.0); HEMATOCRIT 32.1 % (38.2-49.6); LYMPHOCYTES # (AUTO) 1.5 (1.0-3.2); LYMPHOCYTES % 22.9 % (18.0-39.1); MEAN CORPUSCULAR HEMOGLOBIN 31.3 pg (28-32); MEAN CORPUSCULAR HGB CONC 34.3 g/dL (31-35); MEAN CORPUSCULAR VOLUME 91.2 fL (81-99); MONOCYTES # (AUTO) 0.6 (0.2-0.8); MONOCYTES % 8.4 % (4.4-11.3); NEUTROPHILS # (AUTO) 4.4 (2.1-6.9); NEUTROPHILS % 66.2 % (38.7-80.0); PLATELET COUNT 96 x10e3/uL (140-360); RED BLOOD COUNT 3.52 x10e6/uL (4.3-5.7); WHITE BLOOD COUNT 6.65 x10e3/uL (4.8-10.8)
[2023-07-19 10:46] LABS: ALBUMIN 3.8 g/dL (3.5-5.0); ALBUMIN/GLOBULIN RATIO 1.2 (0.8-2.0); ANION GAP 16.1 mmol/L (8-16); BILIRUBIN,TOTAL 1.2 mg/dL (0.2-1.2); CREATININE, SERUM 1.33 mg/dL (0.72-1.25); POTASSIUM 4.1 mmol/L (3.5-5.1); TOTAL PROTEIN 6.9 g/dL (6.5-8.1)
[~2023-07-20] MED LIST changes: +ACETAMINOPHEN 1000 MG/100 ML 100 ML IV ONE; -DEXAMETHASONE SOD PHOS INJ 4 MG/ML SDV ONE; +FUROSEMIDE40 MG PO; +GENTAMICIN 80MG/NS 100 ML 200 ML IV ONE; -GLYCOPYRROLATE INJ 0.2 MG/ML VIAL ONE; +HYDRALAZINE HCL25 MG PO; +LACTATED RINGER'S 1,000 ML ONE; +MG-PLUS-PROTEI133 MG PO; -MIDAZOLAM HCL 2 MG/2 ML VIAL ONE; -POVIDONE IODINE 0.05% 0.05 % ML PO ONE; -SEVOFLURANE INHAL SOLN 250 ML PEN BTL ONE; +SLOW FE137 MG PO; -SODIUM CHLORIDE 0.9% 1000ML 1,000 ML ONE; +VESICARE5 MG PO; +VITAMIN B COMP1 EACH PO; +VITAMIN D3 COM1 EACH PO
[2023-07-20 15:02] VITALS: BP 126/61; PULSE 58; RESP 17; O2SAT 96
== END | disposition home or self-care (01) ==
LOC: OR 10:16
PROVIDERS: ATTEND Urology
DX: C65.1 Malignant neoplasm of right renal pelvis (principal); C65.2 Malignant neoplasm of left renal pelvis; C67.9 Malignant neoplasm of bladder, unspecified; N13.1 Hydronephrosis with ureteral stricture, not elsewhere classified; N20.1 Calculus of ureter; N35.819 Other urethral stricture, male, unspecified site; N40.1 Benign prostatic hyperplasia with lower urinary tract symptoms; R35.1 Nocturia; R39.14 Feeling of incomplete bladder emptying; N39.0 Urinary tract infection, site not specified; E11.22 Type 2 diabetes mellitus with diabetic chronic kidney disease; I12.9 Hypertensive chronic kidney disease with stage 1 through stage 4 chronic kidney disease, or unspecified chronic kidney disease; N18.9 Chronic kidney disease, unspecified; Z46.6 Encounter for fitting and adjustment of urinary device; E78.5 Hyperlipidemia, unspecified; G47.33 Obstructive sleep apnea (adult) (pediatric); F32.A Depression, unspecified; F17.200 Nicotine dependence, unspecified, uncomplicated; Z01.812 Encounter for preprocedural laboratory examination; Z01.818 Encounter for other preprocedural examination; Z79.4 Long term (current) use of insulin; Z79.84 Long term (current) use of oral hypoglycemic drugs; Z79.899 Other long term (current) drug therapy; Z98.890 Other specified postprocedural states; Z92.21 Personal history of antineoplastic chemotherapy
CPT/HCPCS: 36415 ×2; 52332; 52344; 52352; 52354; 74018; 74420; 80053; 82948; 85025; 88112; 88300; C1758; C1769 ×2; C2617; J0131; J0696; J1580; J2001; J2405; J2704; J3010; J7121; Q9967; 88305

== ENCOUNTER → 2023-09-14 | Day surgery (SDC) | payer MEDICARE ==
[~2023-09-14] MED LIST changes: -CEFTRIAXONE 1 GM VIAL ONE; +EPHEDRINE SULFATE INJ 50 MG/ML VIAL ONE; +ETOMIDATE 2 MG/ML 10 ML INJ IV ONE; -GENTAMICIN 80MG/NS 100 ML 200 ML IV ONE; +GLYCOPYRROLATE INJ 0.2 MG/ML VIAL ONE; +KETAMINE 50MG/5ML SYR ONE; -LACTATED RINGER'S 1,000 ML ONE; +MIDAZOLAM HCL 2 MG/2 ML VIAL ONE; +SEVOFLURANE INHAL SOLN 250 ML PEN BTL ONE
[2023-09-14] MEDS: CEFTRIAXONE 1 GM VIAL ONE (09:54)
[2023-09-14] MEDS: LACTATED RINGER'S 1,000 ML ONE (09:54)
[2023-09-14 09:55] LABS: BASOPHILS % 0.7 % (0.0-1.0); EOSINOPHILS # (AUTO) 0.1 (0.0-0.4); HEMATOCRIT 34.9 % (38.2-49.6); LYMPHOCYTES # (AUTO) 1.6 (1.0-3.2); LYMPHOCYTES % 26.9 % (18.0-39.1); MEAN CORPUSCULAR HGB CONC 34.4 g/dL (31-35); MEAN CORPUSCULAR VOLUME 93.1 fL (81-99); MONOCYTES # (AUTO) 0.5 (0.2-0.8); NEUTROPHILS # (AUTO) 3.8 (2.1-6.9); NEUTROPHILS % 62.2 % (38.7-80.0); PLATELET COUNT 120 x10e3/uL (140-360); RED BLOOD COUNT 3.75 x10e6/uL (4.3-5.7); WHITE BLOOD COUNT 6.09 x10e3/uL (4.8-10.8)
[2023-09-14] MEDS: GENTAMICIN 80MG/NS 100 ML 200 ML IV ONE (09:55)
[2023-09-14 10:53] LABS: POTASSIUM 4.7 mmol/L (3.0-5.1)
[2023-09-14 10:54] LABS: ANION GAP 1.7 mmol/L (8-16); BILIRUBIN,TOTAL 0.9 mg/dL (0.2-1.6); CALCIUM 9.6 mg/dL (8.0-10.3)
[2023-09-14 10:55] LABS: ALBUMIN 3.9 g/dL (3.3-5.5); ALBUMIN/GLOBULIN RATIO 1.1 (0.8-2.0); TOTAL PROTEIN 7.6 g/dL (6.4-8.1)
[2023-09-14 14:22] VITALS: TEMP 97.1
[2023-09-14 15:15] VITALS: BP 123/56; PULSE 52; RESP 14; O2SAT 98
[2023-09-14] MEDS: PHENAZOPYRIDINE HCL 100 MG TAB ONE (15:15)
== END | disposition home or self-care (01) ==
LOC: OR 09:08
PROVIDERS: ATTEND Urology
DX: C66.1 Malignant neoplasm of right ureter (principal); C65.2 Malignant neoplasm of left renal pelvis; C65.1 Malignant neoplasm of right renal pelvis; C67.9 Malignant neoplasm of bladder, unspecified; Z46.6 Encounter for fitting and adjustment of urinary device; N13.30 Unspecified hydronephrosis; N35.812 Other bulbous urethral stricture, male; N40.1 Benign prostatic hyperplasia with lower urinary tract symptoms; R39.14 Feeling of incomplete bladder emptying; R35.1 Nocturia; N39.0 Urinary tract infection, site not specified; N13.8 Other obstructive and reflux uropathy; N32.89 Other specified disorders of bladder; Z87.442 Personal history of urinary calculi; E11.22 Type 2 diabetes mellitus with diabetic chronic kidney disease; I12.9 Hypertensive chronic kidney disease with stage 1 through stage 4 chronic kidney disease, or unspecified chronic kidney disease; N18.9 Chronic kidney disease, unspecified; G47.33 Obstructive sleep apnea (adult) (pediatric); I10 Essential (primary) hypertension; E78.5 Hyperlipidemia, unspecified; E11.9 Type 2 diabetes mellitus without complications; F32.A Depression, unspecified; Z79.84 Long term (current) use of oral hypoglycemic drugs; Z79.4 Long term (current) use of insulin; Z79.899 Other long term (current) drug therapy; Z87.891 Personal history of nicotine dependence
CPT/HCPCS: 36415; 74018; 74420; 80053; 82948; 85025; 87086; 88305; 93005; C1769; C2617; J0696; J1580; J2001; J2250; J2405

== ENCOUNTER → 2023-12-26 | Day surgery (SDC) | payer MEDICARE ==
[~2023-12-26] MED LIST changes: -ACETAMINOPHEN 1000 MG/100 ML 100 ML IV ONE; +ACETAMINOPHEN 1000 MG/100 ML IV ONE; +DEXAMETHASONE SOD PHOS INJ 4 MG/ML SDV ONE; -EPHEDRINE SULFATE INJ 50 MG/ML VIAL ONE; -ETOMIDATE 2 MG/ML 10 ML INJ IV ONE; -GLYCOPYRROLATE INJ 0.2 MG/ML VIAL ONE; -KETAMINE 50MG/5ML SYR ONE; -MIDAZOLAM HCL 2 MG/2 ML VIAL ONE; +VESICARE10 MG PO
[2023-12-26] MEDS: LACTATED RINGER'S 1,000 ML ONE (06:18)
[2023-12-26] MEDS: CEFTRIAXONE 1 GM VIAL ONE (06:18)
[2023-12-26] MEDS: GENTAMICIN 80MG/NS 100 ML 200 ML IV ONE (06:19)
[2023-12-26 06:37] LABS: BASOPHILS # (AUTO) 0.1 (0.0-0.1); BASOPHILS % 0.7 % (0.0-1.0); EOSINOPHILS # (AUTO) 0.2 (0.0-0.4); EOSINOPHILS % 2.8 % (0.0-6.0); LYMPHOCYTES # (AUTO) 2.1 (1.0-3.2); LYMPHOCYTES % 28.4 % (18.0-39.1); MEAN CORPUSCULAR HEMOGLOBIN 31.2 pg (28-32); MEAN CORPUSCULAR HGB CONC 31.6 g/dL (31-35); MEAN CORPUSCULAR VOLUME 98.7 fL (81-99); MONOCYTES # (AUTO) 0.6 (0.2-0.8); MONOCYTES % 8.5 % (4.4-11.3); NEUTROPHILS # (AUTO) 4.4 (2.1-6.9); NEUTROPHILS % 59.3 % (38.7-80.0); PLATELET COUNT 112 x10e3/uL (140-360); RED BLOOD COUNT 3.85 x10e6/uL (4.3-5.7); RED CELL DISTRIBUTION WIDTH 14.3 % (11.7-14.4); WHITE BLOOD COUNT 7.44 x10e3/uL (4.8-10.8)
[2023-12-26 07:00] LABS: ALBUMIN 3.8 g/dL (3.5-5.0); ANION GAP 12.7 mmol/L (8-16); BILIRUBIN,TOTAL 0.7 mg/dL (0.2-1.2); CALCIUM 9.2 mg/dL (8.4-10.2); CREATININE, SERUM 1.86 mg/dL (0.72-1.25); POTASSIUM 3.7 mmol/L (3.5-5.1); TOTAL PROTEIN 7.5 g/dL (6.5-8.1)
[2023-12-26 10:11] VITALS: TEMP 97.1
[2023-12-26] MEDS: PHENAZOPYRIDINE HCL 100 MG TAB ONE (10:38)
[2023-12-26] MEDS: FENTANYL CITRATE/PF 100MCG/2 ML INJ ONE (11:00)
[2023-12-26] MEDS: ACETAMINOPHEN/CODEINE 300MG - 30MG TAB ONE (11:15)
[2023-12-26 11:30] VITALS: BP 110/58; PULSE 50; RESP 18; O2SAT 97
== END | disposition home or self-care (01) ==
LOC: OR 05:46
PROVIDERS: ATTEND Urology
DX: C67.9 Malignant neoplasm of bladder, unspecified (principal); C65.2 Malignant neoplasm of left renal pelvis; C66.2 Malignant neoplasm of left ureter; N13.30 Unspecified hydronephrosis; N13.5 Crossing vessel and stricture of ureter without hydronephrosis; Z46.6 Encounter for fitting and adjustment of urinary device; N35.919 Unspecified urethral stricture, male, unspecified site; I10 Essential (primary) hypertension; E78.5 Hyperlipidemia, unspecified; E11.9 Type 2 diabetes mellitus without complications; Z79.84 Long term (current) use of oral hypoglycemic drugs; Z79.4 Long term (current) use of insulin; Z79.899 Other long term (current) drug therapy; Z92.21 Personal history of antineoplastic chemotherapy
CPT/HCPCS: 36415; 52235; 52332; 52355; 71046; 74018; 74420; 80053; 85025; 88305; 93005; C1758; C1769; C2617; J0131; J0696; J1100; J1580; J2001; J2405; J2704; J3010; J7121; Q9967; 88307

== ENCOUNTER 2023-12-29 12:08 | Emergency (ER) | payer MEDICARE ==
[~2023-12-29] VITALS: Ht 154.9 cm; Wt 64.4 kg
[~2023-12-29 12:08] MED LIST changes: -ACETAMINOPHEN 1000 MG/100 ML IV ONE; -DEXAMETHASONE SOD PHOS INJ 4 MG/ML SDV ONE; -FENTANYL CITRATE/PF 100MCG/2 ML INJ ONE; -IOPAMIDOL 610MG/1ML 300 MG/ML VIAL IV ONE; -LIDOCAINE HCL 2% LOCAL INJ 5 ML SDV VIAL INJ ONE; -ONDANSETRON HCL INJ 2MG/ML 2ML 2 MG/ML VIAL ONE; -PROPOFOL IV EMULSION 10 MG/ML 20 ML VIAL ONE; -SEVOFLURANE INHAL SOLN 250 ML PEN BTL ONE; -VESICARE10 MG PO
[2023-12-29 12:14] VITALS: PULSE 57; RESP 18; TEMP 98.4; O2SAT 100
[2023-12-29] MEDS ORDERED: VESICARE10 MG PO (13:51)
== END 2023-12-29 13:59 | disposition home or self-care (01) ==
LOC: ER 12:14
DX: Z46.6 Encounter for fitting and adjustment of urinary device (principal); I10 Essential (primary) hypertension; E11.9 Type 2 diabetes mellitus without complications; E78.5 Hyperlipidemia, unspecified
CPT/HCPCS: 99282

== ENCOUNTER → 2024-03-21 | Day surgery (SDC) | payer MEDICARE ==
[~2024-03-21] MED LIST changes: +CEFTRIAXONE 1 GM VIAL ONE; +DEXTROSE 5% 250ML 250 ML IV ONE; +FENTANYL CITRATE/PF 100MCG/2 ML INJ ONE; +GENTAMICIN 80MG/NS 100 ML 100 ML IV ONE; +GLYCOPYRROLATE INJ 0.2 MG/ML VIAL ONE; +INSULIN LI100 UNIT/1 SC; +LACTATED RINGER'S 1,000 ML ONE; +LIDOCAINE HCL 2% LOCAL INJ 5 ML SDV VIAL INJ ONE; +PREDNISONE10 MG PO; +PROPOFOL IV EMULSION 10 MG/ML 20 ML VIAL ONE; +SUCCINYLCHOLINE CHLORIDE 20 MG/ML 10ML VIAL ONE; +VESICARE10 MG PO
[2024-03-21 13:51] LABS: BASOPHILS % 0.3 % (0.0-1.0); EOSINOPHILS # (AUTO) 0.1 (0.0-0.4); EOSINOPHILS % 1.7 % (0.0-6.0); HEMATOCRIT 39.6 % (38.2-49.6); HEMOGLOBIN 12.4 g/dL (14.0-18.0); LYMPHOCYTES # (AUTO) 1.8 (1.0-3.2); LYMPHOCYTES % 27.3 % (18.0-39.1); MEAN CORPUSCULAR HGB CONC 31.3 g/dL (31-35); MONOCYTES # (AUTO) 0.6 (0.2-0.8); MONOCYTES % 9.6 % (4.4-11.3); NEUTROPHILS % 60.6 % (38.7-80.0); PLATELET COUNT 113 x10e3/uL (140-360); RED CELL DISTRIBUTION WIDTH 16.4 % (11.7-14.4); WHITE BLOOD COUNT 6.53 x10e3/uL (4.8-10.8)
[2024-03-21 14:16] LABS: ALBUMIN 3.3 g/dL (3.5-5.0); ALBUMIN/GLOBULIN RATIO 0.9 (0.8-2.0); ANION GAP 13.2 mmol/L (8-16); BILIRUBIN,TOTAL 0.7 mg/dL (0.2-1.2); CALCIUM 9.3 mg/dL (8.4-10.2); CREATININE, SERUM 1.68 mg/dL (0.72-1.25); POTASSIUM 4.2 mmol/L (3.5-5.1)
[2024-03-21] MEDS: ACETAMINOPHEN/CODEINE 300MG - 30MG TAB ONE (17:29)
[2024-03-21 17:35] VITALS: BP 135/70; PULSE 60; RESP 16; O2SAT 97
== END | disposition home or self-care (01) ==
LOC: OR 12:44
PROVIDERS: ATTEND Urology
DX: C68.8 Malignant neoplasm of overlapping sites of urinary organs (principal); N13.5 Crossing vessel and stricture of ureter without hydronephrosis; N13.30 Unspecified hydronephrosis; Z46.6 Encounter for fitting and adjustment of urinary device; C67.9 Malignant neoplasm of bladder, unspecified; N40.1 Benign prostatic hyperplasia with lower urinary tract symptoms; N13.8 Other obstructive and reflux uropathy; N35.812 Other bulbous urethral stricture, male; Z87.442 Personal history of urinary calculi; G47.33 Obstructive sleep apnea (adult) (pediatric); E11.9 Type 2 diabetes mellitus without complications; I10 Essential (primary) hypertension; E78.5 Hyperlipidemia, unspecified; F32.A Depression, unspecified; Z79.4 Long term (current) use of insulin; Z79.899 Other long term (current) drug therapy
CPT/HCPCS: 36415; 52332; 52344; 74420; 80053; 85025; 87086; 87186; 88112; 88305; C1766; C1769; C2617; J0696; J1580; J2003; J2704; J3010; J7121; 88300; J0330

== ENCOUNTER → 2024-06-27 | Day surgery (SDC) | payer MEDICARE ==
[~2024-06-27] MED LIST changes: +ACETAMINOPHEN 1000 MG/100 ML 100 ML IV ONE; -CEFTRIAXONE 1 GM VIAL ONE; -DEXTROSE 5% 250ML 250 ML IV ONE; +EPHEDRINE SULFATE INJ 50 MG/ML VIAL ONE; +FAMOTIDINE 20 MG/2 ML VIAL IV ONE; -GENTAMICIN 80MG/NS 100 ML 100 ML IV ONE; -GLYCOPYRROLATE INJ 0.2 MG/ML VIAL ONE; -LACTATED RINGER'S 1,000 ML ONE; +ONDANSETRON HCL INJ 2MG/ML 2ML 2 MG/ML VIAL ONE; +PHENAZOPYRIDINE HCL 100 MG TAB ONE; +SEVOFLURANE INHAL SOLN 250 ML PEN BTL ONE; -SUCCINYLCHOLINE CHLORIDE 20 MG/ML 10ML VIAL ONE; +TRESIBA FL100 UNIT/1 SQ
[2024-06-27 10:29] LABS: BASOPHILS % 0.6 % (0.0-1.0); EOSINOPHILS # (AUTO) 0.2 (0.0-0.4); EOSINOPHILS % 2.6 % (0.0-6.0); HEMATOCRIT 36.5 % (38.2-49.6); HEMOGLOBIN 12.1 g/dL (14.0-18.0); LYMPHOCYTES # (AUTO) 1.8 (1.0-3.2); MEAN CORPUSCULAR HEMOGLOBIN 30.9 pg (28-32); MEAN CORPUSCULAR HGB CONC 33.2 g/dL (31-35); MEAN CORPUSCULAR VOLUME 93.1 fL (81-99); MONOCYTES # (AUTO) 0.7 (0.2-0.8); NEUTROPHILS # (AUTO) 4.2 (2.1-6.9); NEUTROPHILS % 60.7 % (38.7-80.0); PLATELET COUNT 123 x10e3/uL (140-360); RED BLOOD COUNT 3.92 x10e6/uL (4.3-5.7); RED CELL DISTRIBUTION WIDTH 13.2 % (11.7-14.4); WHITE BLOOD COUNT 6.92 x10e3/uL (4.8-10.8)
[2024-06-27 11:03] LABS: ALANINE AMINOTRANSFERASE 10 IU/L (0-55); ALBUMIN 3.7 g/dL (3.5-5.0); ALKALINE PHOSPHATASE 104 IU/L (40-150); ANION GAP 13.7 mmol/L (8-16); BILIRUBIN,TOTAL 0.7 mg/dL (0.2-1.2); BLOOD UREA NITROGEN 27 mg/dL (7-26); BUN/CREATININE RATIO 14 (6-25); CALCIUM 8.8 mg/dL (8.4-10.2); CARBON DIOXIDE 24 mmol/L (22-29); CHLORIDE 108 mmol/L (98-107); CREATININE, SERUM 1.94 mg/dL (0.72-1.25); EST GLOMERULAR FILTRATION RATE 34 ML/MIN (>=60); GLUCOSE 138 mg/dL (74-118); POTASSIUM 3.7 mmol/L (3.5-5.1); SODIUM 142 mmol/L (136-145); TOTAL PROTEIN 7.5 g/dL (6.5-8.1)
[2024-06-27] MEDS: CEFTRIAXONE 1 GM VIAL ONE (11:14)
[2024-06-27] MEDS: GENTAMICIN 80MG/NS 100 ML 200 ML IV ONE (11:15)
[2024-06-27] MEDS: SODIUM CHLORIDE 0.9% 1000ML 1,000 ML ONE (11:15)
[2024-06-27 14:40] VITALS: TEMP 98.7
[2024-06-27] MEDS: PHENAZOPYRIDINE HCL 100 MG TAB PO ONE (15:25)
[2024-06-27 16:15] VITALS: BP 111/57; PULSE 57; RESP 18; O2SAT 98
== END | disposition home or self-care (01) ==
LOC: OR 09:00
PROVIDERS: ATTEND Urology
DX: C65.2 Malignant neoplasm of left renal pelvis (principal); C65.1 Malignant neoplasm of right renal pelvis; N13.5 Crossing vessel and stricture of ureter without hydronephrosis; N13.30 Unspecified hydronephrosis; N35.812 Other bulbous urethral stricture, male; N40.1 Benign prostatic hyperplasia with lower urinary tract symptoms; N13.8 Other obstructive and reflux uropathy; N39.0 Urinary tract infection, site not specified; N28.9 Disorder of kidney and ureter, unspecified; E11.9 Type 2 diabetes mellitus without complications; I10 Essential (primary) hypertension; E78.5 Hyperlipidemia, unspecified; Z46.6 Encounter for fitting and adjustment of urinary device; Z79.4 Long term (current) use of insulin; Z79.899 Other long term (current) drug therapy
CPT/HCPCS: 36415; 52332; 52354; 71046; 74420; 80053; 85025; 88112; 88305; 93005; C1758; C1769; C2617; J0131; J0696; J1580; J2003; J2405; J2704; J3010; J7030

== ENCOUNTER → 2024-10-10 | Day surgery (SDC) | payer MEDICARE ==
[~2024-10-10] MED LIST changes: -PHENAZOPYRIDINE HCL 100 MG TAB ONE
[2024-10-10 08:26] LABS: BASOPHILS % 0.1 % (0.0-1.0); EOSINOPHILS % 0.1 % (0.0-6.0); LYMPHOCYTES % 21.4 % (18.0-39.1); MONOCYTES % 5.9 % (4.4-11.3); NEUTROPHILS % 72.3 % (38.7-80.0); RED CELL DISTRIBUTION WIDTH 15.8 % (11.7-14.4)
[2024-10-10 08:50] LABS: EST GLOMERULAR FILTRATION RATE 47.0 ML/MIN (>=60)
[2024-10-10 11:06] VITALS: TEMP 99
[2024-10-10] MEDS: SODIUM CHLORIDE 0.9% 1000ML 1,000 ML ONE (11:37)
[2024-10-10] MEDS: CEFTRIAXONE 1 GM VIAL ONE (11:37)
[2024-10-10] MEDS: GENTAMICIN 80MG/NS 100 ML 100 ML IV ONE (11:39)
[2024-10-10] MEDS: PHENAZOPYRIDINE HCL 100 MG TAB ONE (11:45)
[2024-10-10 12:43] LABS: INR 1.06
[2024-10-10 12:50] VITALS: BP 146/74; PULSE 55; RESP 16; O2SAT 99
== END | disposition home or self-care (01) ==
LOC: OR 07:36
PROVIDERS: ATTEND Urology
DX: C65.2 Malignant neoplasm of left renal pelvis (principal); N13.5 Crossing vessel and stricture of ureter without hydronephrosis; Z46.6 Encounter for fitting and adjustment of urinary device; N35.912 Unspecified bulbous urethral stricture, male; N28.89 Other specified disorders of kidney and ureter; N39.0 Urinary tract infection, site not specified; R31.29 Other microscopic hematuria; N40.1 Benign prostatic hyperplasia with lower urinary tract symptoms; R35.1 Nocturia; R39.14 Feeling of incomplete bladder emptying; E10.9 Type 1 diabetes mellitus without complications; Z79.4 Long term (current) use of insulin; I10 Essential (primary) hypertension; G47.33 Obstructive sleep apnea (adult) (pediatric); F32.A Depression, unspecified; R00.1 Bradycardia, unspecified; I49.1 Atrial premature depolarization; Z87.891 Personal history of nicotine dependence; Z79.899 Other long term (current) drug therapy; Z79.60 Long term (current) use of unspecified immunomodulators and immunosuppressants; Z79.52 Long term (current) use of systemic steroids
CPT/HCPCS: 36415; 52332; 52355; 74420; 80053; 82948; 85025; 85610; 85730; 87086; 88304; 93005; C1766; C2617; J0131; J0696; J1308; J1580; J2003; J2405; J2704; J3010; J7030